=== PATIENT | female | born 1985 | race African-American/Black ===

== ENCOUNTER 2016-12-15 16:38 | Emergency (ER) | payer OTHER ==
[~2016-12-15] VITALS: Ht 167.6 cm; Wt 125.3 kg
[~2016-12-15 16:38] MED LIST: IBUP-1459 PO
[2016-12-15 16:42] VITALS: TEMP 36.7; Ht 167.6 cm; Wt 125.3 kg
[2016-12-15] MEDS ORDERED: KETOROLAC TROMETHAMINE 30 MG/ML VIAL IV STA (17:48)
[2016-12-15] MEDS ORDERED: MECLIZINE HCL 25 MG TAB PO STA (17:48)
[2016-12-15] MEDS ORDERED: SODIUM CHLORIDE 0.9% 1000ML 1,000 ML IV STA (17:48)
[2016-12-15 18:02] LABS: BASO % 0.5 %; BASO ABS # 0.03 K/uL (0-0.2); COMPLETE YES; EOS % 3.4 %; HEMATOCRIT 38.1 % (37-47); IG% 0.2 %; LYMPH % 36.6 %; LYMPH ABS # 2.23 K/uL (1.2-3.4); MEAN CELL VOLUME 85.4 fL (80-100); MEAN CORPUSCULAR HEMOGLOBIN 27.8 pg (25-34); MEAN CORPUSCULAR HGB CONC 32.5 g/dl (32-36); MEAN PLATELET VOLUME 8.6 fL (7.4-10.4); MONO % 6.6 %; NEUT % 52.7 %; PLATELET COUNT 362 K/uL (130-400); RED BLOOD COUNT 4.46 M/uL (4.2-5.4); WHITE BLOOD COUNT 6.09 K/uL (4.8-10.8)
[2016-12-15 18:11] LABS: URINE APPEARANCE CLOUDY (CLEAR); URINE BILIRUBIN NEG (NEG); URINE COLOR YELLOW; URINE EPITHELIAL CELL AUTO >30 /lpf (0-5); URINE NITRITE NEG (NEG); URINE SPECIFIC GRAVITY 1.026 (1.000-1.030); UROBILINOGEN NEG (NEG); ZZUR CULT IF INDIC CLEAN CATCH YES
[2016-12-15 18:13] LABS: MANUAL MICROSCOPIC REQUIRED? NO; REVIEW REQ? YES
[2016-12-15 18:22] LABS: ALT/SGPT 18 U/L (12-78); AST/SGOT 11 U/L (15-37); BLOOD UREA NITROGEN 8 mg/dl (7-18); BUN/CREATININE RATIO 10.3 (10-20); CALCIUM 8.4 mg/dl (8.5-10.1); CARBON DIOXIDE 27 mmol/L (21-32); CHLORIDE 105 mmol/L (98-107); CREATININE 0.75 mg/dl (0.60-1.20); GLUCOSE 83 mg/dl (70-99); POTASSIUM 3.7 mmol/L (3.5-5.1); SODIUM 140 mmol/L (136-145)
[2016-12-15 18:27] LABS: ALKALINE PHOSPHATASE 92 U/L (45-117)
--- NOTE | 2016-12-15 19:07 | DIAGNOSTIC IMAGING REPORT ---
HEAD CT NONCONTRAST CT DOSE: 773.57 mGy.cm HISTORY: Headache. TECHNIQUE: Multiaxial CT images of the head were performed without the use of intravenous contrast. Automated exposure control was utilized for this study. Comparison: Head CT 02/08/2016. Findings: The paranasal sinuses and mastoid air cells are clear. The calvarium and skull base are intact. The ventricles and sulci are within normal limits. There is no mass, hematoma, midline shift, or acute infarct. Impression: No acute intracranial abnormality. Electronically signed by: Dalton Cruz M.D. 12/15/2016 7:06 PM Dictated Date/Time: 12/15/2016 7:04 PM
--- NOTE | 2016-12-15 21:45 | DIAGNOSTIC IMAGING REPORT ---
PELVIC ULTRASOUND CLINICAL HISTORY: + Beta hCG w/ lower abdominal pain COMPARISON STUDY: None. Images. FINDINGS: Transabdominal scanning of the pelvis was performed. The patient deferred transvaginal scanning. The uterus measures 10.8 x 4.5 x 6.7 cm in thickness. No uterine masses. Endometrial stripe is thickened up to 1.9 cm. No pelvic free fluid. No adnexal masses. The ovaries are normal in size. There is a 1.2 cm slightly complex cyst within the right ovary. IMPRESSION: Suboptimal evaluation of the pelvis since the patient deferred transvaginal scanning. The endometrial stripe is thickened measuring up to 1.9 cm. No intrauterine gestational sac or fetus is identified at this time. Therefore, this could be due to an early nonvisualized intrauterine gestation, nonvisualized ectopic , or recent spontaneous in the setting of a positive test. No definite adnexal masses. Considered follow-up beta-hCG and pelvic ultrasound for further evaluation. Electronically signed by: Dalton Cruz M.D. 12/15/2016 9:43 PM Dictated Date/Time: 12/15/2016 9:39 PM
[2016-12-15] MEDS ORDERED: CEPHALEXIN MONOHYDRATE 250 MG CAP PO ONE (22:15)
[2016-12-15] MEDS ORDERED: CEPH500C PO (22:16)
[2016-12-15 22:50] VITALS: BP 99/70; PULSE 84; O2SAT 100
--- NOTE | 2016-12-15 23:09 | EMERGENCY ROOM VISIT NOTE ---
History Report prepared by Haleigh: Jagdeep Judge Under the Supervision of: Fredy LozanoO. First contact with patient: 17:28 Chief Complaint: ILLNESS Stated Complaint: BLOOD IN STOOL.HEADACHE,STOMACH/CHEST PAINS History of Present Illness The patient is a 31 year old female who presents to the Emergency Room with complaints of constant chest pain beginning three days ago. She currently rates her discomfort an 8/10 in severity. The patient reports that she is overall not feeling well. She reports that she has a constant headache that gradually started three days ago as well. The patient states that she feels dizzy, had blood in her stool four times, and had a memory lapse. She reports that her bowel movement this morning contained blood, and the last prior time was 4 days ago. The patient denies shortness of breath, arm pain, jaw pain, coughing up blood, nausea, vomiting, diarrhea, melena, tripping, and any recent falls. She also denies any history of smoking, DM, hypertension, hypercholesterolemia, heart disease, and blood clots. She notes that she traveled to [place] one month ago. The patient states that her last menstrual period was over a month ago. Source of History: patient Onset: three days ago Position: chest Symptom Intensity: 8/10 Timing: constant Associated Symptoms: + headache, No SOB, No nausea, No vomiting, No melena, No diarrhea Note: Associated symptoms: dizziness, had blood in her stool, and a memory lapse The patient denies arm pain, jaw pain, coughing up blood, tripping, and any recent falls. Review of Systems See HPI for pertinent positives & negatives. A total of 10 systems reviewed and were otherwise negative. Past Medical & Surgical Medical Problems: (1) Asthma (2) Chest pain (3) Chest pain (4) Gestation period, 26 weeks (5) (6) Shortness of breath Family History Diabetes mellitus Social History Smoking Status: Never Smoker Alcohol Use: none Marital Status: Housing Status: lives with family Occupation Status: employed Current/Historical Medications Scheduled Cephalexin Monohydrate (Keflex), 1 CAP PO TID Allergies Coded Allergies: Penicillins (Verified Allergy, Severe, HIVES, 12/15/16) Shellfish Allergy (Verified Allergy, Severe, ANAPHYLAXIS, 12/15/16) ALL SEAFOOD Physical Exam Vital Signs Date Time Temp Pulse Resp B/P (MAP) Pulse Ox O2 Delivery O2 Flow Rate FiO2 12/15/16 22:50 84 16 99/70 100 12/15/16 21:26 84 20 90/62 99 12/15/16 20:30 84 26 124/74 100 12/15/16 18:43 85 23 100 12/15/16 18:38 94 20 100 12/15/16 18:08 90 23 100 12/15/16 17:52 127/79 12/15/16 17:51 89 12/15/16 17:21 123/65 12/15/16 16:42 36.7 94 18 134/86 100 Room Air Physical Exam GENERAL: sitting up in bed, obese, no distress, non-toxic EYE EXAM: normal conjunctiva OROPHARYNX: no exudate, no erythema, lips, buccal mucosa, and tongue normal and mucous membranes are moist NECK: supple, no nuchal rigidity, no adenopathy, non-tender LUNGS: Clear to auscultation. Normal chest wall mechanics HEART: no murmurs, S1 normal and S2 normal ABDOMEN: abdomen soft, non-tender, normo-active bowel sounds, no masses, no rebound or guarding. BACK: Back is symmetrical on inspection and there is no deformity, no midline tenderness, no CVA tenderness. 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 LOWER EXTREMITIES: No pitting edema. NEURO EXAM: Normal sensorium, cranial nerves II-XII intact, normal speech, no weakness of arms, no weakness of legs. Medical Decision & Procedures ER Provider Diagnostic Interpretation: Radiology results as stated below per my review and the radiologist's interpretation: HEAD CT NONCONTRAST CT DOSE: 773.57 mGy.cm HISTORY: Headache. TECHNIQUE: Multiaxial CT images of the head were performed without the use of intravenous contrast. Automated exposure control was utilized for this study. Comparison: Head CT 02/08/2016. Findings: The paranasal sinuses and mastoid air cells are clear. The calvarium and skull base are intact. The ventricles and sulci are within normal limits. There is no mass, hematoma, midline shift, or acute infarct. Impression: No acute intracranial abnormality. Electronically signed by: Dalton Cruz M.D. 12/15/2016 7:06 PM Dictated Date/Time: 12/15/2016 7:04 PM PELVIC ULTRASOUND CLINICAL HISTORY: + Beta hCG w/ lower abdominal pain COMPARISON STUDY: None. Images. FINDINGS: Transabdominal scanning of the pelvis was performed. The patient deferred transvaginal scanning. The uterus measures 10.8 x 4.5 x 6.7 cm in thickness. No uterine masses. Endometrial stripe is thickened up to 1.9 cm. No pelvic free fluid. No adnexal masses. The ovaries are normal in size. There is a 1.2 cm slightly complex cyst within the right ovary. IMPRESSION: Suboptimal evaluation of the pelvis since the patient deferred transvaginal scanning. The endometrial stripe is thickened measuring up to 1.9 cm. No intrauterine gestational sac or fetus is identified at this time. Therefore, this could be due to an early nonvisualized intrauterine gestation, nonvisualized ectopic , or recent spontaneous in the setting of a positive test. No definite adnexal masses. Considered follow-up beta-hCG and pelvic ultrasound for further evaluation. Electronically signed by: Dalton Cruz M.D. 12/15/2016 9:43 PM Dictated Date/Time: 12/15/2016 9:39 PM Laboratory Results 12/15/16 17:40 Red Blood Count 4.46, Mean Corpuscular Volume 85.4, Mean Corpuscular Hemoglobin 27.8, Mean Corpuscular Hemoglobin Concent 32.5, Mean Platelet Volume 8.6, Neutrophils (%) (Auto) 52.7, Lymphocytes (%) (Auto) 36.6, Monocytes (%) (Auto) 6.6, Eosinophils (%) (Auto) 3.4, Basophils (%) (Auto) 0.5, Neutrophils # (Auto) 3.21, Lymphocytes # (Auto) 2.23, Monocytes # (Auto) 0.40, Eosinophils # (Auto) 0.21, Basophils # (Auto) 0.03 12/15/16 17:40 Test 12/15/16 17:40 12/15/16 17:50 White Blood Count 6.09 K/uL (4.8-10.8) Red Blood Count 4.46 M/uL (4.2-5.4) Hemoglobin 12.4 g/dL (12.0-16.0) Hematocrit 38.1 % (37-47) Mean Corpuscular Volume 85.4 fL (80-100) Mean Corpuscular Hemoglobin 27.8 pg (25-34) Mean Corpuscular Hemoglobin Concent 32.5 g/dl (32-36) Platelet Count 362 K/uL (130-400) Mean Platelet Volume 8.6 fL (7.4-10.4) Neutrophils (%) (Auto) 52.7 % Lymphocytes (%) (Auto) 36.6 % Monocytes (%) (Auto) 6.6 % Eosinophils (%) (Auto) 3.4 % Basophils (%) (Auto) 0.5 % Neutrophils # (Auto) 3.21 K/uL (1.4-6.5) Lymphocytes # (Auto) 2.23 K/uL (1.2-3.4) Monocytes # (Auto) 0.40 K/uL (0.11-0.59) Eosinophils # (Auto) 0.21 K/uL (0-0.5) Basophils # (Auto) 0.03 K/uL (0-0.2) RDW Standard Deviation 41.9 fL (36.4-46.3) RDW Coefficient of Variation 13.6 % (11.5-14.5) Immature Granulocyte % (Auto) 0.2 % Immature Granulocyte # (Auto) 0.01 K/uL (0.00-0.02) D-Dimer 330 ug/L FEU (0-500) Anion Gap 8.0 mmol/L (3-11) Est Creatinine Clear Calc Drug Dose 148.3 ml/min Estimated GFR () 124.0 Estimated GFR (Non- 107.0 BUN/Creatinine Ratio 10.3 (10-20) Calcium Level 8.4 mg/dl (8.5-10.1) Total Bilirubin 0.5 mg/dl (0.2-1) Direct Bilirubin < 0.1 mg/dl (0-0.2) Aspartate Amino Transf (AST/SGOT) 11 U/L (15-37) Alanine Aminotransferase (ALT/SGPT) 18 U/L (12-78) Alkaline Phosphatase 92 U/L (45-117) Troponin I < 0.015 ng/ml (0-0.045) Total Protein 7.9 gm/dl (6.4-8.2) Albumin 3.4 gm/dl (3.4-5.0) Lipase 95 U/L (73-393) Human Chorionic Gonadotropin, Quant 418 mIU/mL Urine Color YELLOW Urine Appearance CLOUDY (CLEAR) Urine pH 8.0 (4.5-7.5) Urine Specific [place] 1.026 (1.000-1.030) Urine Protein NEG (NEG) Urine Glucose (UA) NEG (NEG) Urine Ketones NEG (NEG) Urine Occult Blood NEG (NEG) Urine Nitrite NEG (NEG) Urine Bilirubin NEG (NEG) Urine Urobilinogen NEG (NEG) Urine Leukocyte Esterase MODERATE (NEG) Urine WBC (Auto) 5-10 /hpf (0-5) Urine RBC (Auto) 0-4 /hpf (0-4) Urine Hyaline Casts (Auto) 1-5 /lpf (0-5) Urine Epithelial Cells (Auto) >30 /lpf (0-5) Urine Bacteria (Auto) 1+ (NEG) Urine Yeast (Auto) PRESENT (NONE PRSENT) Urine Test POS (NEG) Laboratory results per my review. Medications Administered Medications (Trade) Dose Ordered Sig/Jenn Route Start Time Stop Time Status Last Admin Dose Admin Sodium Chloride 1,000 ml @ 999 mls/hr Q1H1M STAT IV 12/15/16 17:48 12/15/16 18:51 DC 12/15/16 18:00 999 MLS/HR Meclizine HCl (Antivert Tab) 25 mg NOW STAT PO 12/15/16 17:48 12/15/16 17:50 DC 12/15/16 18:05 25 MG Ketorolac Tromethamine (Toradol Inj) 30 mg NOW STAT IV 12/15/16 17:48 12/15/16 17:50 DC 12/15/16 18:04 30 MG Cephalexin Monohydrate (Keflex Cap) 500 mg NOW ONCE PO 12/15/16 22:15 12/15/16 22:16 DC 12/15/16 22:50 500 MG ECG Indication: chest pain Rate (beats per minute): 85 Rhythm: sinus rhythm Findings: T-wave inversion (lead III), no ectopy, other (normal axis) Comparison ECG Date: 02/07/16 Change: no significant change ED Course ED COURSE: Vital signs were reviewed and showed hypertension The patients medical record was reviewed The above diagnostic studies were performed and reviewed. ED treatments and interventions as stated above. 1737: The patient was evaluated in room B06. A complete history and physical examination was performed. 1747: Ordered Toradol Inj 30mg IV, Antivert Tab 25mg PO, Sodium Chloride 1000 ml @ 999 mls/hr IV 1919: I reevaluated the patient, and she refuses a chest x-ray. 2007: I reevaluated the patient, and she is resting. I discussed her current exam finding with her. 2214: Ordered Keflex Cap 500mg PO 2215: Upon reevaluation, the patient is resting and in no distress. I discussed my findings with the patient and she understands and agrees with the treatment plan. Based on the patients age, coexisting illnesses, exam and lab findings the decision to treat as an outpatient was made. The patient remained stable while under my care. The patient appeared well at the time of discharge. Medical Decision Differential Diagnosis includes but is not limited to dehydration, stroke, anemia, hypoglycemia, hyponatremia, hypernatremia, urinary tract infection, pneumonia, bronchitis, sepsis, gastroenteritis, additional abdominal pathology, metabolic abnormalities and infections. Medication Reconciliation: I attest that I have personally reviewed the patient' s current medication list. Blood pressure screening: Patient was found to have an elevated blood pressure and was referred to their primary doctor for recheck and further treatment. Patient is a 31-year-old female who presents the ER for chest pain which has been present for the past 3 days associated with weakness, intermittent headache and intermittent blood in the stool. Pt was hem neg. She does admit to urinary frequency as well. Abdominal exam is benign. Labs show no significant leukocytosis or anemia. BMP along with LFTs, bilirubin and lipase was normal. Troponin was negative with chest pain that has been present for greater than 3 days. D-dimer was negative. She declined a chest x-ray due to the . HCG was 420. UA shows bacteria and yeast. She was given a dose of Keflex with her urinary frequency. Patient was discharged follow-up with OB in 2 days to have a repeat beta hCG. I did explain the risk of a possible ectopic although unlikely. I do believe that her symptoms are most likely secondary to the early in combination with a UTI. RX for diflucan was called into pharmacy. She has no cardiac risk factors. Low risk for PE and with a negative d-dimer this was not pursued any further. EKG as stated above was negative. Discussed with Pt concerning signs and symptoms to watch out for. Pt was instructed to follow up with their PCP and discussed with the patient their option to return to the ED at anytime for persistent or worsening symptoms. The appropriate anticipatory guidance and out-patient management, including indications for return to the emergency department, were explained at length to the patient and understood. Impression Primary Impression: Headache Additional Impression: UTI (urinary tract infection) Scribe Attestation The scribe's documentation has been prepared under my direction and personally reviewed by me in its entirety. I confirm that the note above accurately reflects all work, treatment, procedures, and medical decision making performed by me. Departure Information Dispostion Home / Self-Care Prescriptions Cephalexin Monohydrate (Keflex) 500 Mg Cap 1 CAP PO TID for 10 Days, #30 CAP Prov: Aidan Hill, DO 12/15/16 Referrals No Doctor, Assigned (PCP) Forms HOME CARE DOCUMENTATION FORM, IMPORTANT VISIT INFORMATION, WORK / SCHOOL INSTRUCTIONS Patient Instructions Headache Pain, My [facility] [address] Additional Instructions Please follow up with your primary care doctor with in the next 24 hours. Any worsening of your symptoms, please return to the ED immediately. This includes vaginal bleeding, abdominal pain, weakness or numbness, change in vision, or any other concerning signs or symptoms from your standpoint. Please follow up with OB in the next 2 days for repeat beta hCG. Please take prenatals. Problem Qualifiers Primary Impression: Headache Headache type: unspecified Headache chronicity pattern: acute headache Intractability: not intractable Qualified Codes: R51 - Headache Additional Impression: UTI (urinary tract infection) Urinary tract infection type: site unspecified Hematuria presence: without hematuria Qualified Codes: N39.0 - Urinary tract infection, site not specified
== END 2016-12-15 23:07 | disposition home or self-care (01) ==
LOC: C.EDB 16:40
DX: R51 Headache (principal); N39.0 Urinary tract infection, site not specified; J45.909 Unspecified asthma, uncomplicated; Z83.3 Family history of diabetes mellitus

== ENCOUNTER → 2016-12-22 | Outpatient (CLI) | payer OTHER ==
[~2016-12-22] MED LIST changes: +CEPH500C PO; -IBUP-1459 PO; +ONDA4TAB46 PO; +PROM25SU28 PR; +RANI150C4 PO
== END | disposition home or self-care (01) ==
LOC: C.LAB1850 10:48
PROVIDERS: ATTEND Obstetrics & Gynecology
DX: O20.0 Threatened abortion (principal); Z3A.00 Weeks of gestation of pregnancy not specified

== ENCOUNTER 2017-01-01 15:05 | Emergency (ER) | payer OTHER ==
[~2017-01-01] VITALS: Ht 167.6 cm; Wt 123.1 kg
[2017-01-01 15:16] VITALS: TEMP 36.7; Ht 167.6 cm; Wt 123.1 kg
[2017-01-01] MEDS ORDERED: SODIUM CHLORIDE 0.9% 1000ML 1,000 ML IV STA (16:56)
[2017-01-01] MEDS ORDERED: ACETAMINOPHEN 325 MG TAB PO STA (16:56)
[2017-01-01 17:12] LABS: BASO % 0.2 %; BASO ABS # 0.02 K/uL (0-0.2); COMPLETE YES; EOS % 2.9 %; HEMATOCRIT 38.3 % (37-47); IG% 0.2 %; LYMPH % 27.8 %; LYMPH ABS # 2.31 K/uL (1.2-3.4); MEAN CELL VOLUME 84.9 fL (80-100); MEAN CORPUSCULAR HEMOGLOBIN 28.6 pg (25-34); MEAN CORPUSCULAR HGB CONC 33.7 g/dl (32-36); MEAN PLATELET VOLUME 9.1 fL (7.4-10.4); MONO % 8.3 %; NEUT % 60.6 %; PLATELET COUNT 333 K/uL (130-400); RED BLOOD COUNT 4.51 M/uL (4.2-5.4); WHITE BLOOD COUNT 8.31 K/uL (4.8-10.8)
[2017-01-01 17:18] LABS: URINE APPEARANCE CLEAR (CLEAR); URINE BILIRUBIN NEG (NEG); URINE COLOR YELLOW; URINE EPITHELIAL CELL AUTO >30 /lpf (0-5); URINE NITRITE NEG (NEG); URINE PH 7.5 (4.5-7.5); URINE SPECIFIC GRAVITY 1.023 (1.000-1.030); UROBILINOGEN NEG (NEG); ZZUR CULT IF INDIC CLEAN CATCH YES
[2017-01-01 17:26] LABS: MANUAL MICROSCOPIC REQUIRED? NO; REVIEW REQ? NO
[2017-01-01 17:38] LABS: BUN/CREATININE RATIO 7.3 (10-20); CALCIUM 8.8 mg/dl (8.5-10.1); CREATININE 0.74 mg/dl (0.60-1.20); MAGNESIUM 1.8 mg/dl (1.8-2.4); POTASSIUM 3.7 mmol/L (3.5-5.1)
--- NOTE | 2017-01-01 18:58 | EMERGENCY ROOM VISIT NOTE ---
History Report prepared by Pageibflorencio: Chin Pardo Under the Supervision of: Dr. Maren Roa M.D. First contact with patient: 16:28 Chief Complaint: GI ASSESSMENT Stated Complaint: BACK, LOWER BELLY PAIN, BLOOD IN STOOL, NAUSEA Nursing Triage Summary: abdominal pain. blood in stool for the past 3 days. taking antibiotics for a uti/yeast infection. dizziness and back pain History of Present Illness The patient is a 31 year old female who presents to the Emergency Room with complaints of constant abdominal pain for the past three days. The patient reports that her last normal menstrual period was in the beginning of October. The patient states that she reported to the ED for a UTI three weeks ago when she found out she was . She reports that she has been two times before and both were premature, with the first one born two months early and the second a month early. She reports that during her ED visit, she was given Keflex for her UTI and has taken it three times a day,1500 mg total. The patient states that she is currently off of the antibiotics. She states that she had been experiencing diarrhea from the antibiotics, but admits this has resolved. The patient states that three days ago she started to experience abdominal pain which is worse with pressure, lower back pain, muscle spasms, nausea, vomiting, polyuria, and blood in her stool. The patient states that she went to her [employer] [facility] earlier today when they were concerned about her symptoms and advised her to report to the ED. The patient denies urinary symptoms, diabetes, and swelling in her feet. Source of History: patient Onset: three days ago Position: abdomen Timing: constant Modifying Factors (Worsening): other (pressure) Associated Symptoms: + nausea, + vomiting, + diarrhea, No urinary symptoms Review of Systems See HPI for pertinent positives & negatives. A total of 10 systems reviewed and were otherwise negative. Past Medical & Surgical Medical Problems: (1) Asthma (2) Chest pain (3) Chest pain (4) Gestation period, 26 weeks (5) (6) Shortness of breath Family History Diabetes mellitus Social History Smoking Status: Never Smoker Alcohol Use: none Marital Status: Housing Status: lives with family Occupation Status: employed Current/Historical Medications No Active Prescriptions or Reported Meds Allergies Coded Allergies: Penicillins (Verified Allergy, Severe, HIVES, 12/15/16) Shellfish Allergy (Verified Allergy, Severe, ANAPHYLAXIS, 12/15/16) ALL SEAFOOD Physical Exam Vital Signs Date Time Temp Pulse Resp B/P (MAP) Pulse Ox O2 Delivery O2 Flow Rate FiO2 01/01/17 20:28 71 17 116/87 99 01/01/17 19:17 75 01/01/17 19:15 71 113/64 98 Room Air 01/01/17 17:25 73 16 134/72 100 Room Air 01/01/17 15:16 36.7 89 18 125/66 99 Room Air Physical Exam Vital signs reviewed. General: Well-appearing 31 year old female, in no significant distress. HEENT: No scleral icterus, PERRLA, neck supple. Atraumatic. Cardiovascular: Regular rate and rhythm, no extra sounds. Pulmonary: Clear to auscultation bilaterally, normal work of breathing. Abdomen: Soft, Diffuse abdominal tenderness, no rebound or guarding, nondistended, positive bowel sounds. Back: Positive CVA tenderness bilaterally Musculoskeletal: Atraumatic, no peripheral edema. Neurologic: Patient awake alert and oriented x 3, full strength in all 4 extremities. Cranial nerves 2 through 12 grossly intact. Skin: Warm, dry, no rash Medical Decision & Procedures ER Provider Diagnostic Interpretation: Radiology results as stated below per my review and radiologist interpretation: RENAL ULTRASOUND CLINICAL HISTORY: Bilateral costovertebral angle tenderness. . COMPARISON STUDY: None. TECHNIQUE: Sonography of the kidneys and the urinary bladder was performed. FINDINGS: The right kidney measures 10.2 cm in maximal dimension and the left measures 11.9 cm. There is no hydronephrosis. Renal echogenicity, size and cortical thickness are normal. Neither ureteral jet was identified. No calculi are identified by sonography. IMPRESSION: Normal renal ultrasound. No hydronephrosis. Electronically signed by: Shane Veloz M.D. 01/01/2017 7:09 PM Dictated Date/Time: 01/01/2017 7:08 PM ULTRASOUND CLINICAL HISTORY: . Abdominal pain and cramping. COMPARISON STUDY: ultrasound December 15, 2016. TECHNIQUE: Transabdominal and transvaginal sonography of the pelvis was performed. FINDINGS: An intrauterine gestational sac is noted. This contains a yolk sac that measures 4 mm in size. A pole is noted with a crown-rump length of 7.6 mm. Estimated gestational age on this exam is 6 weeks and 5 days. heart rate is 104 bpm. This is within normal limits given this gestational age. Note is made of a 3.5 x 1.7 x 2.1 cm subchorionic hypoechoic focus that likely reflect a subchorionic hematoma. No additional abnormalities are identified. The ovaries are unremarkable. There is no free fluid. IMPRESSION: 1. Intrauterine gestational sac containing a pole with estimated gestational age of 6 weeks and 5 days. Normal heart rate of 104 bpm. 2. 3.5 x 1.7 x 2.1 cm suspected subchorionic hematoma. Electronically signed by: Shane Veloz M.D. 01/01/2017 7:18 PM Dictated Date/Time: 01/01/2017 7:14 PM Laboratory Results 01/01/17 16:50 Red Blood Count 4.51, Mean Corpuscular Volume 84.9, Mean Corpuscular Hemoglobin 28.6, Mean Corpuscular Hemoglobin Concent 33.7, Mean Platelet Volume 9.1, Neutrophils (%) (Auto) 60.6, Lymphocytes (%) (Auto) 27.8, Monocytes (%) (Auto) 8.3, Eosinophils (%) (Auto) 2.9, Basophils (%) (Auto) 0.2, Neutrophils # (Auto) 5.03, Lymphocytes # (Auto) 2.31, Monocytes # (Auto) 0.69, Eosinophils # (Auto) 0.24, Basophils # (Auto) 0.02 01/01/17 16:50 Test 01/01/17 16:50 White Blood Count 8.31 K/uL (4.8-10.8) Red Blood Count 4.51 M/uL (4.2-5.4) Hemoglobin 12.9 g/dL (12.0-16.0) Hematocrit 38.3 % (37-47) Mean Corpuscular Volume 84.9 fL (80-100) Mean Corpuscular Hemoglobin 28.6 pg (25-34) Mean Corpuscular Hemoglobin Concent 33.7 g/dl (32-36) Platelet Count 333 K/uL (130-400) Mean Platelet Volume 9.1 fL (7.4-10.4) Neutrophils (%) (Auto) 60.6 % Lymphocytes (%) (Auto) 27.8 % Monocytes (%) (Auto) 8.3 % Eosinophils (%) (Auto) 2.9 % Basophils (%) (Auto) 0.2 % Neutrophils # (Auto) 5.03 K/uL (1.4-6.5) Lymphocytes # (Auto) 2.31 K/uL (1.2-3.4) Monocytes # (Auto) 0.69 K/uL (0.11-0.59) Eosinophils # (Auto) 0.24 K/uL (0-0.5) Basophils # (Auto) 0.02 K/uL (0-0.2) RDW Standard Deviation 41.1 fL (36.4-46.3) RDW Coefficient of Variation 13.4 % (11.5-14.5) Immature Granulocyte % (Auto) 0.2 % Immature Granulocyte # (Auto) 0.02 K/uL (0.00-0.02) Urine Color YELLOW Urine Appearance CLEAR (CLEAR) Urine pH 7.5 (4.5-7.5) Urine Specific [place] 1.023 (1.000-1.030) Urine Protein NEG (NEG) Urine Glucose (UA) NEG (NEG) Urine Ketones NEG (NEG) Urine Occult Blood NEG (NEG) Urine Nitrite NEG (NEG) Urine Bilirubin NEG (NEG) Urine Urobilinogen NEG (NEG) Urine Leukocyte Esterase SMALL (NEG) Urine WBC (Auto) 1-5 /hpf (0-5) Urine RBC (Auto) 0-4 /hpf (0-4) Urine Hyaline Casts (Auto) 1-5 /lpf (0-5) Urine Epithelial Cells (Auto) >30 /lpf (0-5) Urine Bacteria (Auto) 1+ (NEG) Anion Gap 7.0 mmol/L (3-11) Est Creatinine Clear Calc Drug Dose 148.8 ml/min Estimated GFR () 126.0 Estimated GFR (Non- 108.7 BUN/Creatinine Ratio 7.3 (10-20) Calcium Level 8.8 mg/dl (8.5-10.1) Magnesium Level 1.8 mg/dl (1.8-2.4) Total Bilirubin 0.5 mg/dl (0.2-1) Direct Bilirubin 0.1 mg/dl (0-0.2) Aspartate Amino Transf (AST/SGOT) 14 U/L (15-37) Alanine Aminotransferase (ALT/SGPT) 20 U/L (12-78) Alkaline Phosphatase 87 U/L (45-117) Total Protein 7.9 gm/dl (6.4-8.2) Albumin 3.3 gm/dl (3.4-5.0) Laboratory results per my review. Medications Administered Medications (Trade) Dose Ordered Sig/Jenn Route Start Time Stop Time Status Last Admin Dose Admin Sodium Chloride 1,000 ml @ 999 mls/hr Q1H1M STAT IV 01/01/17 16:56 01/01/17 17:56 DC 01/01/17 17:27 999 MLS/HR Acetaminophen (Tylenol Tab) 650 mg NOW STAT PO 01/01/17 16:56 01/01/17 16:58 DC 01/01/17 17:25 650 MG ED Course 1654: Past medical records reviewed. The patient was evaluated in room B12B. A complete history and physical examination was performed. 1655: Tylenol Tab 650 mg PO, Sodium Chloride 1000 ml @ 999 ms/hr IV. 2011: Upon reevaluation, the patient appeared to have improvement of her symptoms. I discussed findings with the patient. She verbalized agreement of the treatment plan. She was discharged home. Medical Decision The differential diagnosis includes but is not limited to: etiologies such as appendicitis, diverticulitis, PUD, biliary pathology, UTI, pancreatitis, obstruction, mesenteric ischemia, aortic pathology, infections, inflammatory bowel disease, renal colic, threatened , ectopic , ovarian cyst, as well as others were entertained. Medication Reconciliation: I attest that I have personally reviewed the patient' s current medication list. Blood Pressure Screening: Patient was found to have normal blood pressure on screening and does not require follow-up. This pt was evaluated and appeared to be in no distress. PE reveals lumbar muscular pain. US fetus reveals a 6 week viable IUP, subchorionic hemorrhage. Pt was hydrated with NSS. She was given tylenol for pain. UA is negative. Pt was informed of the findings. She will f/u with OBGYN this week and return to the ED for worsening of symptoms or any medical concerns. Impression Primary Impression: First trimester Additional Impression: Subchorionic hematoma Scribe Attestation The scribe's documentation has been prepared under my direction and personally reviewed by me in its entirety. I confirm that the note above accurately reflects all work, treatment, procedures, and medical decision making performed by me. Departure Information Dispostion Home / Self-Care Prescriptions No Active Prescriptions or Reported Meds Referrals No Doctor, Assigned (PCP) Forms HOME CARE DOCUMENTATION FORM, IMPORTANT VISIT INFORMATION Patient Instructions My [facility] [employer] Additional Instructions Diagnosis: First trimester Warm compresses to the low back and gentle stretching. Tylenol 650 mg every 6 hours as needed for pain. Follow-up with your [employer] [facility] for reevaluation within the next several weeks. There is an apparent subchorionic hematoma on ultrasound. Return to the ER for worsening of symptoms or any medical concerns. Problem Qualifiers
--- NOTE | 2017-01-01 19:10 | DIAGNOSTIC IMAGING REPORT ---
RENAL ULTRASOUND CLINICAL HISTORY: Bilateral costovertebral angle tenderness. . COMPARISON STUDY: None. TECHNIQUE: Sonography of the kidneys and the urinary bladder was performed. FINDINGS: The right kidney measures 10.2 cm in maximal dimension and the left measures 11.9 cm. There is no hydronephrosis. Renal echogenicity, size and cortical thickness are normal. Neither ureteral jet was identified. No calculi are identified by sonography. IMPRESSION: Normal renal ultrasound. No hydronephrosis. Electronically signed by: Shane Veloz M.D. 01/01/2017 7:09 PM Dictated Date/Time: 01/01/2017 7:08 PM
--- NOTE | 2017-01-01 19:19 | DIAGNOSTIC IMAGING REPORT ---
ULTRASOUND CLINICAL HISTORY: . Abdominal pain and cramping. COMPARISON STUDY: ultrasound December 15, 2016. TECHNIQUE: Transabdominal and transvaginal sonography of the pelvis was performed. FINDINGS: An intrauterine gestational sac is noted. This contains a yolk sac that measures 4 mm in size. A pole is noted with a crown-rump length of 7.6 mm. Estimated gestational age on this exam is 6 weeks and 5 days. heart rate is 104 bpm. This is within normal limits given this gestational age. Note is made of a 3.5 x 1.7 x 2.1 cm subchorionic hypoechoic focus that likely reflect a subchorionic hematoma. No additional abnormalities are identified. The ovaries are unremarkable. There is no free fluid. IMPRESSION: 1. Intrauterine gestational sac containing a pole with estimated gestational age of 6 weeks and 5 days. Normal heart rate of 104 bpm. 2. 3.5 x 1.7 x 2.1 cm suspected subchorionic hematoma. Electronically signed by: Shane Veloz M.D. 01/01/2017 7:18 PM Dictated Date/Time: 01/01/2017 7:14 PM
[2017-01-01 20:28] VITALS: BP 116/87; PULSE 71; O2SAT 99
== END 2017-01-01 20:30 | disposition home or self-care (01) ==
LOC: C.EDB 15:06
DX: O20.8 Other hemorrhage in early pregnancy (principal); Z3A.01 Less than 8 weeks gestation of pregnancy

== ENCOUNTER → 2017-01-09 | Outpatient (CLI) | payer OTHER ==
[~2017-01-09] MED LIST changes: -CEPH500C PO
[2017-01-12 13:22] LABS: CHLAMYDIA TRACH RNA*** NOT DETECTED (NOT DETECTED); GC (NEIS GONORRHOEAE)RNA** NOT DETECTED (NOT DETECTED)
== END | disposition home or self-care (01) ==
LOC: C.LABSPEC 17:37
PROVIDERS: ATTEND Obstetrics & Gynecology
DX: O20.0 Threatened abortion (principal); Z3A.00 Weeks of gestation of pregnancy not specified

== ENCOUNTER 2017-02-24 15:07 | Emergency (ER) | payer OTHER ==
[~2017-02-24] VITALS: Ht 167.6 cm; Wt 126.5 kg
[2017-02-24 15:11] VITALS: Ht 167.6 cm; Wt 126.5 kg
[2017-02-24] MEDS ORDERED: RANITIDINE HCL 150 MG TAB PO STA (15:26)
--- NOTE | 2017-02-24 15:39 | EMERGENCY ROOM VISIT NOTE ---
History Report prepared by Haleigh: Devorah Harmon Under the Supervision of: Dr. Td Becerra M.D. First contact with patient: 15:19 Chief Complaint: ALLERGIC REACTION Stated Complaint: STUNG BY BEE,DIZZY, Nursing Triage Summary: triage note: pt reports she is 13 week preg. Pt reports she was stung to left upper arm by an insect. pt reports happend at 1430 today. pt reports hx of reaction "when i was little." pt reports "i feel okay right now.' pt denies any shortness of breath, difficulty swallowing. pt reports "i feel dizzy." History of Present Illness The patient is a 31 year old female who presents to the Emergency Room with complaints of two bee stings to the left arm that occurred prior to arrival. The patient states that she is currently 13 weeks . She reports a previous history of an allergic reaction to a bee sting when she was 11 years old. The patient states that she was at the [facility] and was stung twice in her left arm. She states that she began hyperventilating and was evaluated by the medics at the [facility]. The patient states that she is feeling better and denies any shortness of breath or other complaints. Source of History: patient Onset: prior to arrival Position: arm (left) Quality: other (two bee stings) Associated Symptoms: No SOB Review of Systems See HPI for pertinent positives & negatives. A total of 10 systems reviewed and were otherwise negative. Past Medical & Surgical Medical Problems: (1) Asthma (2) Chest pain (3) Chest pain (4) Gestation period, 26 weeks (5) (6) Shortness of breath Family History Diabetes mellitus Social History Smoking Status: Never Smoker Alcohol Use: none Marital Status: Housing Status: lives with family Occupation Status: employed Current/Historical Medications Scheduled PRN Ondansetron Hcl (Zofran), 4 MG PO Q4 PRN for Nausea Allergies Coded Allergies: Penicillins (Verified Allergy, Severe, HIVES, 02/24/17) Shellfish Allergy (Verified Allergy, Severe, ANAPHYLAXIS, 02/24/17) ALL SEAFOOD Physical Exam Vital Signs Date Time Temp Pulse Resp B/P (MAP) Pulse Ox O2 Delivery O2 Flow Rate FiO2 02/24/17 18:26 88 16 142/92 99 02/24/17 16:43 90 16 139/97 100 Room Air 02/24/17 15:11 Room Air 02/24/17 15:09 Room Air Physical Exam GENERAL: Patient is a healthy-appearing well-nourished female HEAD: Normocephalic atraumatic EYES: Ocular movements intact pupils equal and react to light OROPHARYNX mucous membranes are moist no exudates present no erythema or edema present NECK: Supple no nuchal rigidity CHEST: Good equal expansion LUNGS: Clear and equal to auscultation CARDIAC: Normal S1 and S2 ABDOMEN: Soft nontender no guarding BACK: No CVA tenderness EXTREMITIES: 2 bee stings to the left arm. No pain upon palpation normal muscle strength in all groups no clubbing cyanosis or edema NEURO: Patient is following commands and answering questions appropriately. Alert and oriented x3 Cranial Nerves 2-12 grossly intact Medical Decision & Procedures ER Provider Diagnostic Interpretation: US results as stated below per my review and radiologist interpretation: LIMITED (US) CLINICAL HISTORY: 31 years-old Female presenting with Assess for HR, stung by bee, mild abdominal pain. TECHNIQUE: Real-time grayscale and color and spectral Doppler ultrasound imaging of the pelvis was performed using a transabdominal probe. COMPARISON: 01/01/2017. FINDINGS: Uterus: Single live intrauterine . Female measures 1.5 cm, which corresponds with an estimated gestational age of 14 weeks 4 days and an estimated delivery date of 08/21/2017. heart rate 152 beats per minute. Anterior central implantation. Transverse positioning. Normal amniotic fluid volume. No perigestational fluid to suggest hemorrhage.Cervix long and closed. Right adnexa: Right ovary not visualized. Left adnexa: Left ovary not visualized. Other: No free fluid. IMPRESSION: Single live intrauterine with estimated gestational age 14 weeks 4 days and estimated date of delivery 08/21/2017. Electronically signed by: Sami Bishop M.D. 02/24/2017 5:33 PM Dictated Date/Time: 02/24/2017 5:30 PM Medications Administered Medications (Trade) Dose Ordered Sig/Jenn Route Start Time Stop Time Status Last Admin Dose Admin Diphenhydramine HCl (Benadryl Cap) 50 mg NOW STAT PO 02/24/17 15:26 02/24/17 15:28 DC 02/24/17 15:31 50 MG Ranitidine HCl (zANTac TAB) 150 mg NOW STAT PO 02/24/17 15:26 02/24/17 15:28 DC 02/24/17 15:31 150 MG ED Course 1519: Past medical records reviewed. The patient was evaluated in room B6. A complete history and physical examination was performed. 152: Ordered Zantac Tab 150 mg PO, Benadryl Cap 50 mg PO. 173: I reevaluated the patient and she is resting comfortably. 174: I reevaluated the patient and she is doing well. I discussed the exam findings with her and I discussed the treatment plan. She verbalized complete understanding and agreement. She is ready to go home. Medical Decision Differential diagnosis: Etiologies such as allergic reaction, anaphylaxis, urticaria, Hanley-Landry syndrome, toxic epidermal necrolysis, erythema multiforme, cellulitis, as well as others were entertained. This is a 31-year-old female who presents to the emergency department complaining of a bee sting. The patient is . Upon arrival to emergency department she is in no distress. She has no stridor or wheezing on examination. She is a local reaction at the bee sting site. There is no stinger present. I placed ice on the area. The patient was given Benadryl and Zantac here in the emergency department. She was sent for an ultrasound which showed no distress. I do feel that the patient is safe enough to be discharged home for follow-up with her primary care physician. Patient was in agreement with the treatment plan. Medication Reconcilliation Current Medication List: was personally reviewed by me Blood Pressure Screening Patient's blood pressure: Elevated blood pressure Blood pressure disposition: Referred to PCP Impression Primary Impression: Allergic reaction Scribe Attestation The scribe's documentation has been prepared under my direction and personally reviewed by me in its entirety. I confirm that the note above accurately reflects all work, treatment, procedures, and medical decision making performed by me. Departure Information Dispostion Home / Self-Care Referrals No Doctor, Assigned (PCP) Forms HOME CARE DOCUMENTATION FORM, IMPORTANT VISIT INFORMATION, School Instructions, Work Instructions Patient Instructions ED Allergic Reaction Local Other, My [facility] Additional Instructions Take 50 mg Benadryl every 6 hours as needed Follow up with OB You have been examined and treated today on an emergency basis only. This is not a substitute for, or an effort to provide, complete comprehensive medical care. It is impossible to recognize and treat all injuries or illnesses in a single emergency department visit. It is therefore important that you follow up closely with your PCP. Call as soon as possible for an appointment. Thank you for your time and consideration. I look forward to speaking with you again soon. Please don't hesitate to call us if you have any questions. Problem Qualifiers Primary Impression: Allergic reaction Encounter type: initial encounter Qualified Codes: T78.40XA - Allergy, unspecified, initial encounter
[2017-02-24] MEDS ORDERED: ONDA4TAB46 PO (16:01)
--- NOTE | 2017-02-24 17:34 | DIAGNOSTIC IMAGING REPORT ---
LIMITED (US) CLINICAL HISTORY: 31 years-old Female presenting with Assess for HR, stung by bee, mild abdominal pain. TECHNIQUE: Real-time grayscale and color and spectral Doppler ultrasound imaging of the pelvis was performed using a transabdominal probe. COMPARISON: 01/01/2017. FINDINGS: Uterus: Single live intrauterine . Female measures 1.5 cm, which corresponds with an estimated gestational age of 14 weeks 4 days and an estimated delivery date of 08/21/2017. heart rate 152 beats per minute. Anterior central implantation. Transverse positioning. Normal amniotic fluid volume. No perigestational fluid to suggest hemorrhage.Cervix long and closed. Right adnexa: Right ovary not visualized. Left adnexa: Left ovary not visualized. Other: No free fluid. IMPRESSION: Single live intrauterine with estimated gestational age 14 weeks 4 days and estimated date of delivery 08/21/2017. Electronically signed by: Sami Bishop M.D. 02/24/2017 5:33 PM Dictated Date/Time: 02/24/2017 5:30 PM
[2017-02-24 18:26] VITALS: BP 142/92; PULSE 88; O2SAT 99
== END 2017-02-24 18:26 | disposition home or self-care (01) ==
LOC: C.EDB 15:08
DX: S40.862A Insect bite (nonvenomous) of left upper arm, initial encounter (principal); T63.441A Toxic effect of venom of bees, accidental (unintentional), initial encounter; X58.XXXA Exposure to other specified factors, initial encounter; J45.909 Unspecified asthma, uncomplicated; Z33.1 Pregnant state, incidental; Z83.3 Family history of diabetes mellitus

== ENCOUNTER → 2017-02-28 | Day surgery (SDC) | payer OTHER ==
[~2017-02-28] VITALS: Ht 167.6 cm; Wt 122.0 kg
[~2017-02-28] MED LIST changes: +LACTATED RINGER'S 1000ML 1,000 ML IV ONE; +ONDANSETRON INJ 8 MG in DEXTROSE 5% 50ML 50 ML IV ONE; +PROMETHAZINE HCL INJ 25 MG in SODIUM CHLORIDE 0.9% 50ML 50 ML IV PRN; +PROMETHAZINE HCL INJ 25 MG/ML 1 ML VIAL IV PRN
[2017-02-28 15:45] VITALS: BP 137/78; PULSE 91; TEMP 37.3; O2SAT 98; Ht 167.6 cm; Wt 122.0 kg
[2017-02-28 17:03] VITALS: BP 116/66; PULSE 89; TEMP 37.2; O2SAT 98
[2017-02-28] MEDS: LACTATED RINGER'S 1000ML 1,000 ML IV SCH ×2 (17:03→19:06)
[2017-02-28 19:06] VITALS: BP 115/56; PULSE 91; TEMP 37.2; O2SAT 100
[2017-02-28 19:59] VITALS: BP 131/64; PULSE 95; TEMP 37.2; O2SAT 100
== END | disposition home or self-care (01) ==
LOC: C.MTU 15:30
PROVIDERS: ATTEND Obstetrics & Gynecology
DX: R11.0 Nausea (principal); R82.4 Acetonuria

== ENCOUNTER → 2017-03-09 | Outpatient (CLI) | payer OTHER ==
[~2017-03-09] MED LIST changes: -LACTATED RINGER'S 1000ML 1,000 ML IV ONE; -ONDANSETRON INJ 8 MG in DEXTROSE 5% 50ML 50 ML IV ONE; -PROMETHAZINE HCL INJ 25 MG in SODIUM CHLORIDE 0.9% 50ML 50 ML IV PRN; -PROMETHAZINE HCL INJ 25 MG/ML 1 ML VIAL IV PRN
[2017-03-15 14:26] LABS: AFP CONCENTRATION 25.2 NG/ML; AFP MULTIPLE OF MEDIAN 1.02; AFPTS GESTATIONAL AGE 16.4 WEEKS; AFPTS INSULIN DEP DIABETIC? NO; AFPTS MATERNAL WT 277 LBS; ALPHA-FETOPROTEIN RACE OTHER=O; ESTRIOL MULTIPLE OF MEDIAN 0.91; HISTORY OF NTD NO; INHIBIN A 176 PG/ML; INHIBIN A MOM 1.33; REPEAT SAMPLE? NO; hCG MULTIPLE OF MEDIAN 1.82
== END | disposition home or self-care (01) ==
LOC: C.LAB1850 10:26
PROVIDERS: ATTEND Obstetrics & Gynecology
DX: O09.92 Supervision of high risk pregnancy, unspecified, second trimester (principal); Z3A.00 Weeks of gestation of pregnancy not specified

== ENCOUNTER → 2017-03-16 | Outpatient (CLI) | payer OTHER ==
[2017-03-16 09:27] LABS: PATIENT HEIGHT 142.2 cm
[2017-03-16 10:37] LABS: URINE TOTAL PROTEIN 19.6 mg/dl (0-11.9)
[2017-03-16 11:21] LABS: CREATININE 0.53 mg/dl (0.6-1.2)
== END | disposition home or self-care (01) ==
LOC: C.LAB1850 09:18
PROVIDERS: ATTEND Obstetrics & Gynecology
DX: O12.10 Gestational proteinuria, unspecified trimester (principal); Z3A.00 Weeks of gestation of pregnancy not specified

== ENCOUNTER 2017-03-28 09:20 | Emergency (ER) | payer OTHER ==
[~2017-03-28] VITALS: Ht 167.6 cm; Wt 126.5 kg
[~2017-03-28 09:20] MED LIST changes: -PROM25SU28 PR; -RANI150C4 PO
[2017-03-28 09:25] VITALS: TEMP 36.9; Ht 167.6 cm; Wt 126.5 kg
[2017-03-28] MEDS ORDERED: PROM25SU28 PR (10:29)
[2017-03-28] MEDS ORDERED: SODIUM CHLORIDE 0.9% 1000ML 1,000 ML IV STA (10:36)
[2017-03-28] MEDS ORDERED: SODIUM CHLORIDE 0.9% 1000ML 1,000 ML IV ONE (10:36)
[2017-03-28 11:42] LABS: BUN/CREATININE RATIO 5.7 (10-20); CALCIUM 8.9 mg/dl (8.5-10.1); CREATININE 0.53 mg/dl (0.60-1.20); POTASSIUM 3.4 mmol/L (3.5-5.1)
[2017-03-28 11:43] LABS: BASO % 0.3 %; BASO ABS # 0.02 K/uL (0-0.2); COMPLETE YES; EOS % 2.4 %; HEMATOCRIT 35.2 % (37-47); IG% 0.4 %; MEAN CELL VOLUME 83.2 fL (80-100); MEAN CORPUSCULAR HEMOGLOBIN 28.4 pg (25-34); MEAN CORPUSCULAR HGB CONC 34.1 g/dl (32-36); MEAN PLATELET VOLUME 9.1 fL (7.4-10.4); MONO % 5.9 %; PLATELET COUNT 319 K/uL (130-400); RED BLOOD COUNT 4.23 M/uL (4.2-5.4); WHITE BLOOD COUNT 7.63 K/uL (4.8-10.8)
--- NOTE | 2017-03-28 12:07 | EMERGENCY ROOM VISIT NOTE ---
History Report prepared by Haleigh: Edilia Downey Under the Supervision of: Dr. Hudson Calles M.D. First contact with patient: 10:31 Chief Complaint: ABDOMINAL PAIN Stated Complaint: SHARP PAIN ON BOTH LOWER SIDES 3MO Nursing Triage Summary: Pt states she is three months . Lower abd pain x 3 days, right flank pain for a couple mos "I figured that was related to the ." Pt denies vaginal bleeding/discharge. States had a soft BM with bleeding "it's happened a couple times." History of Present Illness The patient is a 31 year old female who presents to the Emergency Room with complaints of worsening lower abdominal pain for the past 3 days. The patient is about 3-4 months . She has been having right flank pain for the past couple of months that she thought was related to her , but it has worsened over the past 3 days as well. She describes her pain as cramping and rates it as an 8/10 in severity. She noticed bright red blood in her stool this morning. She has not been straining to have a bowel movement. She has been very nauseated and has been vomiting frequently throughout this entire . The patient denies any abnormal vaginal discharge or bleeding. She denies cough and urinary symptoms. She has had one previous US that showed an IUP at 8 weeks. The patient is . Source of History: patient Onset: 3 days ago Position: abdomen Symptom Intensity: 8/10 Quality: cramping Timing: worsening Associated Symptoms: + nausea, + vomiting, + hematochezia, No cough, No urinary symptoms Note: She denies any abnormal bleeding or discharge. Pt is 3-4 months . Review of Systems See HPI for pertinent positives & negatives. A total of 10 systems reviewed and were otherwise negative. Past Medical & Surgical Medical Problems: (1) Asthma (2) Chest pain (3) Chest pain (4) Gestation period, 26 weeks (5) (6) Shortness of breath Old medical records were reviewed. Nurse's notes were reviewed and I agree with. This is her third Family History Diabetes mellitus Social History Smoking Status: Never Smoker Alcohol Use: none Marital Status: Housing Status: lives with family Occupation Status: employed Current/Historical Medications Scheduled PRN Promethazine Hcl (Phenergan Suppository), 25 MG CA Q6H PRN for Nausea Allergies Coded Allergies: Penicillins (Verified Allergy, Severe, HIVES, 02/24/17) Shellfish Allergy (Verified Allergy, Severe, ANAPHYLAXIS, 02/24/17) ALL SEAFOOD Physical Exam Vital Signs Date Time Temp Pulse Resp B/P (MAP) Pulse Ox O2 Delivery O2 Flow Rate FiO2 03/28/17 14:30 88 18 121/82 98 03/28/17 13:20 79 18 102/77 100 Room Air 03/28/17 11:21 84 18 116/74 100 Room Air 03/28/17 09:25 36.9 95 20 125/75 97 Room Air Physical Exam General: Well developed well nourished non ill appearing gravid young female in no acute distress, breathing comfortably on room air. Normal speech HEENT: Normal cephalic atraumatic. Pupils are equal round and reactive to light. Extraocular movements are intact. Oropharynx is pink with moist mucous membranes. No swelling of the mouth lips or tongue. Neck: Supple with a midline trachea. No meningeal signs or stiffness, no JVD or bruits. No Stridor. Chest: Clear to auscultation bilaterally. No wheezes or rhonchi. No increased work of breathing. Heart: regular rate and rhythm. Abdomen: Soft, nondistended without rebound guarding or rigidity. Mildly tender on right lateral flank. Extremities: No cyanosis clubbing or edema. No calf tenderness or assymetry Spine/Back. Non tender to palpation. No CVA tenderness Skin: Good turgor without rashes. Neurologic exam: Cranial nerves two through 12 are intact. Motor and sensation are intact and symmetrical throughout. Medical Decision & Procedures ER Provider Diagnostic Interpretation: Radiology results as stated below per my review and radiologist interpretation: BILIARY ULTRASOUND CLINICAL HISTORY: Right upper quadrant abdominal pain COMPARISON STUDY: No previous studies for comparison. FINDINGS: The liver appears sonographically normal. The gallbladder appears sonographically normal. The pancreas appears sonographically normal. There is no ductal dilatation. The common bile duct measures 4 mm. There is no right-sided hydronephrosis. IMPRESSION: Normal study Electronically signed by: Bunny Dos Santos M.D. 03/28/2017 12:13 PM Dictated Date/Time: 03/28/2017 12:13 PM LIMITED (US) HISTORY: 31 years-old Female eval for demise . Sharp lower abdominal pain with . Concern for demise. COMPARISON: ultrasound 02/24/2017 TECHNIQUE: Multiple real-time sonographic images of the deep pelvic structures were obtained transabdominally assessing grayscale appearance, color flow and M-mode analysis. FINDINGS: Placenta is in an anterior location. Mildly heterogeneous appearance of the anterior placenta is seen with ill-defined margins measuring up to 7.0 x 2.7 x 6.7 cm with internal vascularity identified. This is nonspecific and was not definitely appreciated on prior study. Cervix is closed, 4.9 cm in length. ADRIAN appears normal. Intrauterine fetus is noted with heart rate measured at 147 bpm. Femur length measures 3.3 cm correlating with estimated gestational age of 20 weeks and 1 day. IMPRESSION: 1. Single living intrauterine gestation. 2. Closed cervix. 3. Nonspecific mildly heterogeneous appearance of the anterior placenta is noted as above. Attention at follow-up recommended. The above report was generated using voice recognition software. It may contain grammatical, syntax or spelling errors. Electronically signed by: Paul De La Cruz M.D. 03/28/2017 12:29 PM Dictated Date/Time: 03/28/2017 12:24 PM Laboratory Results 03/28/17 10:45 Red Blood Count 4.23, Mean Corpuscular Volume 83.2, Mean Corpuscular Hemoglobin 28.4, Mean Corpuscular Hemoglobin Concent 34.1, Mean Platelet Volume 9.1, Neutrophils (%) (Auto) 70.0, Lymphocytes (%) (Auto) 21.0, Monocytes (%) (Auto) 5.9, Eosinophils (%) (Auto) 2.4, Basophils (%) (Auto) 0.3, Neutrophils # (Auto) 5.35, Lymphocytes # (Auto) 1.60, Monocytes # (Auto) 0.45, Eosinophils # (Auto) 0.18, Basophils # (Auto) 0.02 03/28/17 10:45 Test 03/28/17 10:45 03/28/17 12:33 White Blood Count 7.63 K/uL (4.8-10.8) Red Blood Count 4.23 M/uL (4.2-5.4) Hemoglobin 12.0 g/dL (12.0-16.0) Hematocrit 35.2 % (37-47) Mean Corpuscular Volume 83.2 fL (80-100) Mean Corpuscular Hemoglobin 28.4 pg (25-34) Mean Corpuscular Hemoglobin Concent 34.1 g/dl (32-36) Platelet Count 319 K/uL (130-400) Mean Platelet Volume 9.1 fL (7.4-10.4) Neutrophils (%) (Auto) 70.0 % Lymphocytes (%) (Auto) 21.0 % Monocytes (%) (Auto) 5.9 % Eosinophils (%) (Auto) 2.4 % Basophils (%) (Auto) 0.3 % Neutrophils # (Auto) 5.35 K/uL (1.4-6.5) Lymphocytes # (Auto) 1.60 K/uL (1.2-3.4) Monocytes # (Auto) 0.45 K/uL (0.11-0.59) Eosinophils # (Auto) 0.18 K/uL (0-0.5) Basophils # (Auto) 0.02 K/uL (0-0.2) RDW Standard Deviation 41.3 fL (36.4-46.3) RDW Coefficient of Variation 13.8 % (11.5-14.5) Immature Granulocyte % (Auto) 0.4 % Immature Granulocyte # (Auto) 0.03 K/uL (0.00-0.02) Anion Gap 10.0 mmol/L (3-11) Est Creatinine Clear Calc Drug Dose 211.1 ml/min Estimated GFR () 147.7 Estimated GFR (Non- 127.4 BUN/Creatinine Ratio 5.7 (10-20) Calcium Level 8.9 mg/dl (8.5-10.1) Total Bilirubin 0.4 mg/dl (0.2-1) Direct Bilirubin 0.1 mg/dl (0-0.2) Aspartate Amino Transf (AST/SGOT) 14 U/L (15-37) Alanine Aminotransferase (ALT/SGPT) 13 U/L (12-78) Alkaline Phosphatase 84 U/L (45-117) Total Protein 7.0 gm/dl (6.4-8.2) Albumin 2.6 gm/dl (3.4-5.0) Lipase 66 U/L (73-393) Urine Color YELLOW Urine Appearance CLOUDY (CLEAR) Urine pH 8.0 (4.5-7.5) Urine Specific [place] 1.005 (1.000-1.030) Urine Protein NEG (NEG) Urine Glucose (UA) NEG (NEG) Urine Ketones NEG (NEG) Urine Occult Blood NEG (NEG) Urine Nitrite NEG (NEG) Urine Bilirubin NEG (NEG) Urine Urobilinogen NEG (NEG) Urine Leukocyte Esterase MODERATE (NEG) Urine WBC (Auto) 1-5 /hpf (0-5) Urine RBC (Auto) 0-4 /hpf (0-4) Urine Hyaline Casts (Auto) 1-5 /lpf (0-5) Urine Epithelial Cells (Auto) >30 /lpf (0-5) Urine Bacteria (Auto) 1+ (NEG) Laboratory studies as stated above per my review. Medications Administered Medications (Trade) Dose Ordered Sig/Jenn Route Start Time Stop Time Status Last Admin Dose Admin Sodium Chloride 1,000 ml @ 999 mls/hr Q1H1M STAT IV 03/28/17 10:36 03/28/17 11:36 DC 03/28/17 10:51 999 MLS/HR Sodium Chloride 1,000 ml @ 200 mls/hr Q5H ONCE IV 03/28/17 10:36 03/28/17 15:35 DC 03/28/17 10:51 200 MLS/HR ED Course 1031: Past medical records reviewed. The patient was evaluated in room B2, and a complete history and physical examination were performed. 1036: NSS 1000 ml @ 200 mls/hr IV, NSS 1000 ml @ 999 mls/hr IV 1400: Upon reevaluation the patient is feeling better. 1407: I discussed the patient's case with Dr. Bentley of ob-glass designer. She agrees with the treatment plan and will follow-up with the patient in the office tomorrow. 1416: I reassessed the patient at this time. She is feeling better and resting comfortably. I discussed the results and treatment plan with the patient. I answered all pertaining questions that she had. She expressed understanding and verbalized agreement. The patient will be discharged home. Medical Decision Differential diagnoses includes complication, gallbladder disease, kidney stone, kidney infection, electrolyte or metabolic abnormality. Medication Reconciliation: I attest that I have personally reviewed the patient' s current medication list. Blood pressure Screening: Patient was found to have normal blood pressure on screening and does not require follow-up. This patient comes in as described above. She was placed in room B2. She is here for treatment and evaluation of abdominal discomfort mostly in her right side. She's had some vomiting .she also has some blood in her stool .she had some lower abdominal discomfort at one point but she does not have any now . she 's had no bleeding or discharge or urinary symptoms. She is approximately 3 months . IV access established hydrated normal saline heart heart rate was documented at 135-145. Ultrasound of the fetus appeared normal with a closed cervix. Ultrasound of the gallbladder was unremarkable and she has no hydronephrosis right kidney. She has no fever or white count to suggest infection she is not anemic. She has no acute electrolyte or metabolic abnormalities. She's had nothing to suggest liver, gallbladder, or pancreas disease. She feels better and would like to go home. She has been using Phenergan suppositories which may cause some of the rectal bleeding. She only a small amount. This may be just from some nausea. She feels good and has an appointment tomorrow with her certified [facility] administrator. I did discuss case with Dr. Betnley agrees with the plan and she will be discharged. I did encourage her return if : increasing pain or any new problems or concerns. Consults Time Called: 1403 Consulting Physician: Dr. Bentley Returned Call: [phone] I discussed the patient's case with Dr. Bentley of ob-glass designer. She agrees with the treatment plan and will follow-up with the patient in the office tomorrow. Impression Primary Impression: Right flank pain Additional Impression: Scribe Attestation The scribe's documentation has been prepared under my direction and personally reviewed by me in its entirety. I confirm that the note above accurately reflects all work, treatment, procedures, and medical decision making performed by me. Departure Information Dispostion Home / Self-Care Referrals No Doctor, Assigned (PCP) Forms HOME CARE DOCUMENTATION FORM, IMPORTANT VISIT INFORMATION Patient Instructions My [facility] Additional Instructions Rest Drink plenty of fluids Keep your appointment tommorrow for recheck Return if increasing pain, worsening symptoms, vaginal bleeding, fever or chills , any new problems or concerns Problem Qualifiers Additional Impression: Weeks of gestation: unspecified Qualified Codes: Z34.90 - Encounter for supervision of normal , unspecified, unspecified trimester
--- NOTE | 2017-03-28 12:14 | DIAGNOSTIC IMAGING REPORT ---
BILIARY ULTRASOUND CLINICAL HISTORY: Right upper quadrant abdominal pain COMPARISON STUDY: No previous studies for comparison. FINDINGS: The liver appears sonographically normal. The gallbladder appears sonographically normal. The pancreas appears sonographically normal. There is no ductal dilatation. The common bile duct measures 4 mm. There is no right-sided hydronephrosis. IMPRESSION: Normal study Electronically signed by: Bunny Dos Santos M.D. 03/28/2017 12:13 PM Dictated Date/Time: 03/28/2017 12:13 PM
--- NOTE | 2017-03-28 12:30 | DIAGNOSTIC IMAGING REPORT ---
LIMITED (US) HISTORY: 31 years-old Female eval for demise . Sharp lower abdominal pain with . Concern for demise. COMPARISON: ultrasound 02/24/2017 TECHNIQUE: Multiple real-time sonographic images of the deep pelvic structures were obtained transabdominally assessing grayscale appearance, color flow and M-mode analysis. FINDINGS: Placenta is in an anterior location. Mildly heterogeneous appearance of the anterior placenta is seen with ill-defined margins measuring up to 7.0 x 2.7 x 6.7 cm with internal vascularity identified. This is nonspecific and was not definitely appreciated on prior study. Cervix is closed, 4.9 cm in length. ADRIAN appears normal. Intrauterine fetus is noted with heart rate measured at 147 bpm. Femur length measures 3.3 cm correlating with estimated gestational age of 20 weeks and 1 day. IMPRESSION: 1. Single living intrauterine gestation. 2. Closed cervix. 3. Nonspecific mildly heterogeneous appearance of the anterior placenta is noted as above. Attention at follow-up recommended. The above report was generated using voice recognition software. It may contain grammatical, syntax or spelling errors. Electronically signed by: Paul De La Cruz M.D. 03/28/2017 12:29 PM Dictated Date/Time: 03/28/2017 12:24 PM
[2017-03-28 12:44] LABS: URINE APPEARANCE CLOUDY (CLEAR); URINE BILIRUBIN NEG (NEG); URINE COLOR YELLOW; URINE EPITHELIAL CELL AUTO >30 /lpf (0-5); URINE NITRITE NEG (NEG); URINE SPECIFIC GRAVITY 1.005 (1.000-1.030); UROBILINOGEN NEG (NEG)
[2017-03-28 12:49] LABS: MANUAL MICROSCOPIC REQUIRED? NO; REVIEW REQ? NO
[2017-03-28 14:30] VITALS: BP 121/82; PULSE 88; O2SAT 98
== END 2017-03-28 14:32 | disposition home or self-care (01) ==
LOC: C.EDB 09:23
DX: O26.92 Pregnancy related conditions, unspecified, second trimester (principal); R10.30 Lower abdominal pain, unspecified; J45.909 Unspecified asthma, uncomplicated; Z88.0 Allergy status to penicillin; Z91.018 Allergy to other foods; Z83.3 Family history of diabetes mellitus

== ENCOUNTER 2017-04-02 09:24 | Emergency (ER) | payer OTHER ==
[~2017-04-02 09:24] MED LIST changes: -ONDA4TAB46 PO; +PROM25SU28 PR
[2017-04-02] MEDS ORDERED: SODIUM CHLORIDE 0.9% 1000ML 1,000 ML IV STA (09:53)
--- NOTE | 2017-04-02 10:07 | EMERGENCY ROOM VISIT NOTE ---
History First contact with patient: 09:34 Chief Complaint: VOMITING Stated Complaint: VOMITING BLOOD,SIDE PAIN History of Present Illness The patient is a 31 year old female who presents to the Emergency Room with complaints of right flank pain and severe nausea/vomiting. The patient states her right flank pain started about one week ago and has been getting progressively worse. She has been having nausea and vomiting for the past several weeks secondary to , but she also states this has been getting worse. She has been unable to keep any food or drink down, stating she vomited bile occasionally streaked with blood. She states she is approximately 4-5 months , . She has been taking Phenergan, Tums, and Tylenol without relief of nausea or pain. She denies any fevers or chills, chest pain, shortness of breath, syncope, diarrhea or constipation, dysuria, vaginal bleeding or abnormal discharge, rash. Review of Systems A complete 10 point review of systems was reviewed with the patient with pertinent positives and negatives as per history of present illness. All else were negative. Past Medical/Surgical History Medical Problems: (1) Asthma (2) Chest pain (3) Chest pain (4) Gestation period, 26 weeks (5) (6) Shortness of breath Family History Diabetes mellitus Social History Smoking Status: Never Smoker Alcohol Use: none Marital Status: Housing Status: lives with family Occupation Status: employed Current/Historical Medications Scheduled Ranitidine Hcl (Ranitidine Hcl), 1 CAP PO BID Scheduled PRN Promethazine Hcl (Phenergan Suppository), 25 MG AL Q6H PRN for Nausea Physical Exam Vital Signs Date Time Temp Pulse Resp B/P (MAP) Pulse Ox O2 Delivery O2 Flow Rate FiO2 04/02/17 16:47 94 18 135/87 100 04/02/17 15:19 85 18 105/67 100 Room Air 04/02/17 13:19 82 16 102/46 98 Room Air 04/02/17 11:08 36.7 92 20 119/65 99 Room Air 04/02/17 09:30 36.9 91 20 114/71 99 Room Air Physical Exam CONSTITUTIONAL: No acute distress. Well appearing and well nourished. Alert and oriented X 4 with normal affect. HEENT: Normocephalic, atraumatic. Pupils equal, round and reactive to light, EOMI. TMs normal. Pharynx normal. NECK: Supple, full active range of motion without discomfort. RESPIRATORY: Clear to auscultation bilaterally with no wheezing, crackles, rhonchi or stridor. Equal expansion bilaterally. CARDIOVASCULAR: Regular rate and rhythm with no murmurs, rubs or gallops. Normal peripheral perfusion. No edema. GASTROINTESTINAL: Significantly tender in the right flank to light and deep palpation, no definite Delgado's or McBurney's point tenderness, no rebound. Positive guarding. Positive right-sided CVA tenderness. Soft, nondistended, obese. Bowel sounds present in all quadrants. MUSCULOSKELETAL: Full range of motion of all joints without discomfort. INTEGUMENTARY: No rash or other significant dermatologic conditions noted. NEUROLOGIC: Cranial nerves II-XII grossly intact. No focal neurologic deficits noted. Medical Decision & Procedures ER Provider Diagnostic Interpretation: ABDOMEN WITHOUT CONTRAST CLINICAL HISTORY: 31 years-old Female presenting with right flank/abd pain, eval for appendicitis, . TECHNIQUE: Multisequence, multiplanar MR imaging of the abdomen was performed without the use of intravenous contrast. IV contrast: None. COMPARISON: None. FINDINGS: Localizer images: Unremarkable. Lung bases: Lung bases clear. Normal heart size. No pericardial or pleural effusion. Liver: Normal noncontrast appearance. Biliary: No gross biliary ductal dilatation allowing for noncontrast technique. Normal gallbladder. Pancreas: Normal noncontrast appearance. Spleen: Normal noncontrast appearance. Adrenal glands: Normal noncontrast appearance. Kidneys and ureters: Normal noncontrast appearance. No hydronephrosis. Bowel: Appendix nonvisualized. No convincing evidence of inflammatory change in the right lower quadrant. No bowel obstruction. Peritoneal cavity: Trace free fluid in the right lower quadrant. Vasculature: Normal noncontrast appearance. Dilated right gonadal vein. Lymph nodes: No gross lymphadenopathy allowing for noncontrast technique. Other: Gravid uterus with normal-appearing fetus. Anterior placenta complication. No perigestational hemorrhage. Uterine contraction noted along the posterior wall. Cervix long and closed. Bilateral ovaries normal appearing. Trace free fluid adjacent to the right ovary. Abdominal wall: Normal. Musculoskeletal: Normal. IMPRESSION: 1. No acute intra-abdominal pathology. 2. Trace right adnexal free fluid without convincing evidence of inflammatory change. However, the appendix is not visualized. There is continuing clinical concern for this diagnosis, repeat examination versus right lower quadrant ultrasound could be obtained. 3. Gravid uterus. PELVIS WITHOUT CONTRAST (MRI) HISTORY: right flank/abd pain, eval appendix TECHNIQUE: Multiplanar multisequence MRI of the pelvis was performed without the use of intravenous contrast. COMPARISON STUDY: Abdominal ultrasound 03/28/2017 FINDINGS: Single intrauterine gestation. The fetus is in a breech presentation. There is an anterior placenta. No evidence for subchorionic hematoma. The visualized bowel shows no definite thickening or obstruction. Trace fluid at the cecal base and adjacent to the right ovary. The appendix is not identified with certainty. There are no definite inflammatory changes identified within the right lower quadrant. IMPRESSION: The appendix is not identified with certainty. There is trace fluid at the cecal base but no definite inflammatory changes. If the patient symptoms continue to progress then repeat MRI/ultrasound can be used for further evaluation. Laboratory Results 04/02/17 10:05 Red Blood Count 4.47, Mean Corpuscular Volume 82.6, Mean Corpuscular Hemoglobin 27.1, Mean Corpuscular Hemoglobin Concent 32.8, Mean Platelet Volume 8.7, Neutrophils (%) (Auto) 71.4, Lymphocytes (%) (Auto) 19.7, Monocytes (%) (Auto) 5.1, Eosinophils (%) (Auto) 3.1, Basophils (%) (Auto) 0.3, Neutrophils # (Auto) 5.49, Lymphocytes # (Auto) 1.51, Monocytes # (Auto) 0.39, Eosinophils # (Auto) 0.24, Basophils # (Auto) 0.02 04/02/17 10:05 Test 04/02/17 10:05 04/02/17 14:05 White Blood Count 7.68 K/uL (4.8-10.8) Red Blood Count 4.47 M/uL (4.2-5.4) Hemoglobin 12.1 g/dL (12.0-16.0) Hematocrit 36.9 % (37-47) Mean Corpuscular Volume 82.6 fL (80-100) Mean Corpuscular Hemoglobin 27.1 pg (25-34) Mean Corpuscular Hemoglobin Concent 32.8 g/dl (32-36) Platelet Count 329 K/uL (130-400) Mean Platelet Volume 8.7 fL (7.4-10.4) Neutrophils (%) (Auto) 71.4 % Lymphocytes (%) (Auto) 19.7 % Monocytes (%) (Auto) 5.1 % Eosinophils (%) (Auto) 3.1 % Basophils (%) (Auto) 0.3 % Neutrophils # (Auto) 5.49 K/uL (1.4-6.5) Lymphocytes # (Auto) 1.51 K/uL (1.2-3.4) Monocytes # (Auto) 0.39 K/uL (0.11-0.59) Eosinophils # (Auto) 0.24 K/uL (0-0.5) Basophils # (Auto) 0.02 K/uL (0-0.2) RDW Standard Deviation 41.6 fL (36.4-46.3) RDW Coefficient of Variation 13.8 % (11.5-14.5) Immature Granulocyte % (Auto) 0.4 % Immature Granulocyte # (Auto) 0.03 K/uL (0.00-0.02) Erythrocyte Sedimentation Rate 46 mm/hr (0-21) Anion Gap 12.0 mmol/L (3-11) Estimated GFR () 141.0 Estimated GFR (Non- 121.7 BUN/Creatinine Ratio 6.1 (10-20) Calcium Level 9.1 mg/dl (8.5-10.1) Total Bilirubin 0.3 mg/dl (0.2-1) Direct Bilirubin < 0.1 mg/dl (0-0.2) Aspartate Amino Transf (AST/SGOT) 11 U/L (15-37) Alanine Aminotransferase (ALT/SGPT) 11 U/L (12-78) Alkaline Phosphatase 92 U/L (45-117) C-Reactive Protein 2.29 mg/dl (0-0.29) Total Protein 7.3 gm/dl (6.4-8.2) Albumin 2.6 gm/dl (3.4-5.0) Lipase 67 U/L (73-393) Urine Color YELLOW Urine Appearance CLEAR (CLEAR) Urine pH 7.5 (4.5-7.5) Urine Specific [place] 1.033 (1.000-1.030) Urine Protein NEG (NEG) Urine Glucose (UA) NEG (NEG) Urine Ketones TRACE (NEG) Urine Occult Blood NEG (NEG) Urine Nitrite NEG (NEG) Urine Bilirubin NEG (NEG) Urine Urobilinogen NEG (NEG) Urine Leukocyte Esterase NEG (NEG) Medications Administered Medications (Trade) Dose Ordered Sig/Jenn Route Start Time Stop Time Status Last Admin Dose Admin Sodium Chloride 1,000 ml @ 999 mls/hr Q1H1M STAT IV 04/02/17 09:53 04/02/17 10:53 DC 04/02/17 10:00 999 MLS/HR Acetaminophen 100 ml @ 400 mls/hr NOW STAT IV 04/02/17 10:59 04/02/17 11:13 DC 04/02/17 11:08 400 MLS/HR Metoclopramide HCl 10 mg/Syringe 2 ml @ 2 mls/min TODAY@1015 IV 04/03/17 10:15 04/03/17 10:45 04/02/17 11:33 2 MLS/MIN Ranitidine HCl (zANTac TAB) 150 mg NOW ONCE PO 04/02/17 16:00 04/02/17 16:01 DC 04/02/17 16:41 150 MG Medical Decision CC: Patient presenting with complaint of right flank pain and nausea/vomiting Interpretation of Labs: No leukocytosis, no anemia, no significant leftward abnormalities, normal renal function, normal liver enzymes and lipase. Mildly elevated inflammatory markers. UA shows trace proteinuria, otherwise negative. Differential Diagnosis: Includes, but not limited to UTI, pyelonephritis, renal stone, cholecystitis, cholelithiasis, appendicitis, pancreatitis, gastritis, hyperemesis gravidarum, dehydration, musculoskeletal pain/strain/sprain Medication Reconciliation: I attest that I have personally reviewed the patient' s current medication list. Vital signs review: I reviewed the patient's vital signs and interpret them as follows: T: Afebrile; BP: Normotensive; HR: Tachycardic; RR: Within normal limits; Pulse Ox: Within normal limits on room air. Blood pressure screening: The patient was found to have normal blood pressure on screening and does not require follow-up for repeat blood pressure check. Summary: Patient was evaluated at bedside, history of physical exam performed. Patient is alert and oriented, in no acute distress, resting calmly in the stretcher. Patient is quite tender along the entire right flank including the right upper and lower quadrants. I reviewed the patient's chart including her most recent visit 5 days ago at which time she had a right upper quadrant ultrasound that showed a normal gallbladder and right kidney with no hydronephrosis. Given her amount of tenderness on the right lower quadrant, I have some concern for appendicitis, which has not yet been ruled out as a cause for patient's pain. Orders were placed at bedside for labs, UA, IV fluids for hydration, IV Tylenol for pain, IV Reglan for nausea/vomiting, MRI abdomen/pelvis to evaluate for appendicitis. Patient discussed with Dr. Monreal, who agrees with my assessment and plan. Labs reviewed as above, in no acute abnormalities. MR imaging reviewed, no definite signs of appendicitis, but cannot fully rule this out as a appendix is not visible. Spoke with Dr. Anderson, OB, he states that if there is concern for appendicitis , surgery should be consulted. I spoke with Dr. Matthews, general surgery, who personally evaluated the patient and reviewed the MRI, and states he has a very low suspicion for appendicitis. Given the otherwise negative workup, the patient's pain may be musculoskeletal in nature, or related to her expanding . I spoke again with Dr. Anderson, and notified him of Dr. Matthews's impression, and our plan for sending the patient home, he is comfortable with this plan. Patient should have OB follow-up this week. Patient reassessed multiple times throughout ED stay, she is improved after interventions, eating a sandwich and tolerating this well. Given the patient's complaint of "sour stomach" and ongoing issues with nausea and stomach discomfort, will start her on ranitidine to treat this. Patient was updated on all results and plan for discharge, as well as follow-up plans, she verbalized understanding. Patient was also given strict return precautions should her symptoms worsen, she verbalized understanding. Patient was discharged home in stable condition and ambulatory. Impression Primary Impression: Right flank pain Additional Impression: Nausea/vomiting in Departure Information Dispostion Home / Self-Care Condition GOOD Prescriptions Ranitidine Hcl (RANITIDINE HCL) 150 Mg Cap 1 CAP PO BID for 30 Days, #60 CAP 0 Refills Prov: Mile Alexander CRNP 04/02/17 Referrals No Doctor, Assigned (PCP) Patient Instructions ED Flank Pain Uncertain Cause, ED Strain Abdominal Muscle, My [facility] Additional Instructions You have been treated in the Emergency Department your Abdominal Pain. Laboratory results and imaging studies have ruled out any emergent causes for your abdominal pain which would warrant admission or surgery. You have been prescribed ranitidine 150 mg twice a day to be used to treat your sour stomach. You may continue taking Zofran or Phenergan for nausea/vomiting as prescribed by your OB provider. - Regular strength (325mg/tab) Tylenol (acetaminophen) 2 tabs every 4-6 hours as needed. Do not exceed 10 tablets in a 24 hour period. Avoid taking more than 3000 mg of Tylenol per day. This includes any other sources of acetaminophen you may take on a regular basis. Try soaking in hot bath or using a heating pad to your right side to help improve your discomfort. Drink plenty of fluids and stay well hydrated. Please call your OB office tomorrow to set up a follow-up appointment this week. Return to the emergency department for any worsening symptoms, including severe worsening abdominal pain, fevers or chills, worsening nausea/vomiting, vomiting up blood, blood in your stool or urine, or any other concerns. Problem Qualifiers
[2017-04-02 10:17] LABS: BASO % 0.3 %; BASO ABS # 0.02 K/uL (0-0.2); COMPLETE YES; EOS % 3.1 %; HEMATOCRIT 36.9 % (37-47); IG% 0.4 %; LYMPH % 19.7 %; LYMPH ABS # 1.51 K/uL (1.2-3.4); MEAN CELL VOLUME 82.6 fL (80-100); MEAN CORPUSCULAR HEMOGLOBIN 27.1 pg (25-34); MEAN CORPUSCULAR HGB CONC 32.8 g/dl (32-36); MEAN PLATELET VOLUME 8.7 fL (7.4-10.4); MONO % 5.1 %; NEUT % 71.4 %; PLATELET COUNT 329 K/uL (130-400); RED BLOOD COUNT 4.47 M/uL (4.2-5.4); WHITE BLOOD COUNT 7.68 K/uL (4.8-10.8)
[2017-04-02 10:35] LABS: ALT/SGPT 11 U/L (12-78); BLOOD UREA NITROGEN 4 mg/dl (7-18); BUN/CREATININE RATIO 6.1 (10-20); CALCIUM 9.1 mg/dl (8.5-10.1); CARBON DIOXIDE 21 mmol/L (21-32); CHLORIDE 105 mmol/L (98-107); CREATININE 0.61 mg/dl (0.60-1.20); GLUCOSE 124 mg/dl (70-99); POTASSIUM 3.6 mmol/L (3.5-5.1); SODIUM 138 mmol/L (136-145)
[2017-04-02 10:38] LABS: ALKALINE PHOSPHATASE 92 U/L (45-117); AST/SGOT 11 U/L (15-37)
[2017-04-02] MEDS ORDERED: METOCLOPRAMIDE HCL INJ 5 MG/ML 2 ML VIAL IV STA (10:59)
[2017-04-02] MEDS ORDERED: ACETAMINOPHEN IV 100 ML IV STA (10:59)
[2017-04-02 11:08] VITALS: TEMP 36.7
--- NOTE | 2017-04-02 12:54 | DIAGNOSTIC IMAGING REPORT ---
PELVIS WITHOUT CONTRAST (MRI) HISTORY: right flank/abd pain, eval appendix TECHNIQUE: Multiplanar multisequence MRI of the pelvis was performed without the use of intravenous contrast. COMPARISON STUDY: Abdominal ultrasound 03/28/2017 FINDINGS: Single intrauterine gestation. The fetus is in a breech presentation. There is an anterior placenta. No evidence for subchorionic hematoma. The visualized bowel shows no definite thickening or obstruction. Trace fluid at the cecal base and adjacent to the right ovary. The appendix is not identified with certainty. There are no definite inflammatory changes identified within the right lower quadrant. IMPRESSION: The appendix is not identified with certainty. There is trace fluid at the cecal base but no definite inflammatory changes. If the patient symptoms continue to progress then repeat MRI/ultrasound can be used for further evaluation. Electronically signed by: Dalton Cruz M.D. 04/02/2017 12:53 PM Dictated Date/Time: 04/02/2017 12:45 PM
--- NOTE | 2017-04-02 12:57 | DIAGNOSTIC IMAGING REPORT ---
ABDOMEN WITHOUT CONTRAST CLINICAL HISTORY: 31 years-old Female presenting with right flank/abd pain, eval for appendicitis, . TECHNIQUE: Multisequence, multiplanar MR imaging of the abdomen was performed without the use of intravenous contrast. IV contrast: None. COMPARISON: None. FINDINGS: Localizer images: Unremarkable. Lung bases: Lung bases clear. Normal heart size. No pericardial or pleural effusion. Liver: Normal noncontrast appearance. Biliary: No gross biliary ductal dilatation allowing for noncontrast technique. Normal gallbladder. Pancreas: Normal noncontrast appearance. Spleen: Normal noncontrast appearance. Adrenal glands: Normal noncontrast appearance. Kidneys and ureters: Normal noncontrast appearance. No hydronephrosis. Bowel: Appendix nonvisualized. No convincing evidence of inflammatory change in the right lower quadrant. No bowel obstruction. Peritoneal cavity: Trace free fluid in the right lower quadrant. Vasculature: Normal noncontrast appearance. Dilated right gonadal vein. Lymph nodes: No gross lymphadenopathy allowing for noncontrast technique. Other: Gravid uterus with normal-appearing fetus. Anterior placenta complication. No perigestational hemorrhage. Uterine contraction noted along the posterior wall. Cervix long and closed. Bilateral ovaries normal appearing. Trace free fluid adjacent to the right ovary. Abdominal wall: Normal. Musculoskeletal: Normal. IMPRESSION: 1. No acute intra-abdominal pathology. 2. Trace right adnexal free fluid without convincing evidence of inflammatory change. However, the appendix is not visualized. There is continuing clinical concern for this diagnosis, repeat examination versus right lower quadrant ultrasound could be obtained. 3. Gravid uterus. Electronically signed by: Sami Bishop M.D. 04/02/2017 12:56 PM Dictated Date/Time: 04/02/2017 12:46 PM
[2017-04-02 14:28] LABS: URINE APPEARANCE CLEAR (CLEAR); URINE BILIRUBIN NEG (NEG); URINE COLOR YELLOW; URINE NITRITE NEG (NEG); URINE PH 7.5 (4.5-7.5); URINE SPECIFIC GRAVITY 1.033 (1.000-1.030); UROBILINOGEN NEG (NEG)
[2017-04-02 14:35] LABS: MANUAL MICROSCOPIC REQUIRED? NO; REVIEW REQ? NO
[2017-04-02] MEDS ORDERED: RANITIDINE HCL 150 MG TAB PO ONE (16:00)
[2017-04-02] MEDS ORDERED: RANI150C4 PO (16:01)
--- NOTE | 2017-04-02 16:16 | Surgery Progress Note ---
Surgery Progress Note Date of Service Apr 02, 2017. Subjective 04/02/17- see dictated consult Objective Vital Signs: Date Time Temp Pulse Resp B/P (MAP) Pulse Ox O2 Delivery O2 Flow Rate FiO2 04/02/17 15:19 85 18 105/67 100 Room Air 04/02/17 13:19 82 16 102/46 98 Room Air 04/02/17 11:08 36.7 92 20 119/65 99 Room Air 04/02/17 09:30 36.9 91 20 114/71 99 Room Air Laboratory Results: Results Past 24 Hours Test 04/02/17 10:05 04/02/17 14:05 Range/Units White Blood Count 7.68 4.8-10.8 K/uL Red Blood Count 4.47 4.2-5.4 M/uL Hemoglobin 12.1 12.0-16.0 g/dL Hematocrit 36.9 37-47 % Mean Corpuscular Volume 82.6 80-100 fL Mean Corpuscular Hemoglobin 27.1 25-34 pg Mean Corpuscular Hemoglobin Concent 32.8 32-36 g/dl Platelet Count 329 130-400 K/uL Mean Platelet Volume 8.7 7.4-10.4 fL Neutrophils (%) (Auto) 71.4 % Lymphocytes (%) (Auto) 19.7 % Monocytes (%) (Auto) 5.1 % Eosinophils (%) (Auto) 3.1 % Basophils (%) (Auto) 0.3 % Neutrophils # (Auto) 5.49 1.4-6.5 K/uL Lymphocytes # (Auto) 1.51 1.2-3.4 K/uL Monocytes # (Auto) 0.39 0.11-0.59 K/uL Eosinophils # (Auto) 0.24 0-0.5 K/uL Basophils # (Auto) 0.02 0-0.2 K/uL RDW Standard Deviation 41.6 36.4-46.3 fL RDW Coefficient of Variation 13.8 11.5-14.5 % Immature Granulocyte % (Auto) 0.4 % Immature Granulocyte # (Auto) 0.03 0.00-0.02 K/uL Erythrocyte Sedimentation Rate 46 0-21 mm/hr Sodium Level 138 136-145 mmol/L Potassium Level 3.6 3.5-5.1 mmol/L Chloride Level 105 98-107 mmol/L Carbon Dioxide Level 21 21-32 mmol/L Anion Gap 12.0 3-11 mmol/L Blood Urea Nitrogen 4 7-18 mg/dl Creatinine 0.61 0.60-1.20 mg/dl Estimated GFR () 141.0 Estimated GFR (Non- 121.7 BUN/Creatinine Ratio 6.1 10-20 Random Glucose 124 70-99 mg/dl Calcium Level 9.1 8.5-10.1 mg/dl Total Bilirubin 0.3 0.2-1 mg/dl Direct Bilirubin < 0.1 0-0.2 mg/dl Aspartate Amino Transf (AST/SGOT) 11 15-37 U/L Alanine Aminotransferase (ALT/SGPT) 11 12-78 U/L Alkaline Phosphatase 92 45-117 U/L C-Reactive Protein 2.29 0-0.29 mg/dl Total Protein 7.3 6.4-8.2 gm/dl Albumin 2.6 3.4-5.0 gm/dl Lipase 67 73-393 U/L Urine Color YELLOW Urine Appearance CLEAR CLEAR Urine pH 7.5 4.5-7.5 Urine Specific [place] 1.033 1.000-1.030 Urine Protein NEG NEG Urine Glucose (UA) NEG NEG Urine Ketones TRACE NEG Urine Occult Blood NEG NEG Urine Nitrite NEG NEG Urine Bilirubin NEG NEG Urine Urobilinogen NEG NEG Urine Leukocyte Esterase NEG NEG Microbiology Results 04/02/17 Urine Culture, Received Pending Assessment & Plan 04/02/17- see dictated consult I reviewed pts history, labs and studies. I talked to pt and examined her. I do not think she has appendicitis or other intraabdominal surgical emergency. She seemed relieved with my findings.
[2017-04-02 16:47] VITALS: BP 135/87; PULSE 94; O2SAT 100
--- NOTE | 2017-04-02 23:12 | SURGICAL CONSULTATION ---
DATE OF CONSULTATION: 04/02/2017 REASON FOR CONSULTATION: Abdominal pain. HISTORY OF PRESENT ILLNESS: The patient is a 31-year-old female who is 21 weeks , presenting to the Emergency Room for the second time in the past week to 10 days for abdominal pain. Today, it is more right sided and right flank in nature. She did have lower abdominal pain prior to this with a workup being negative. She did have an MRI of the pelvis and abdomen today which showed no evidence of any inflammatory process, but they were unable to well visualize the appendix, but they saw no tubular inflamed structures in the abdomen. Her white blood cell count is normal. Her temperature is normal. She has had some hyperemesis during this and was actually admitted at one point for this. Upon entering the room, the patient does appear to be relatively normal with normal affect. She does not appear to be clinically ill whatsoever and is relieved at my discussion of her MRI findings. REVIEW OF SYSTEMS: Ten other systems were reviewed and found to be negative. PAST MEDICAL HISTORY: Includes history of asthma and prior pregnancies. FAMILY AND SOCIAL HISTORY: Noncontributory. MEDICATIONS: She takes Phenergan p.r.n. PHYSICAL EXAMINATION: GENERAL: Currently, on examination, her affect is normal. She does not appear to be clinically ill. Her vital signs are normal. HEENT: Her sclerae are nonicteric or erythematous. Her head is otherwise atraumatic. NECK: Supple. ABDOMEN: Her abdomen is soft with normal bowel sounds. She does have some tenderness over the right side and right flank area to palpation. EXTREMITIES: Without edema. LABORATORY DATA: Her white blood cell count is 7.68. IMAGING: I did review her MRI findings with the radiologist and they feel there is absolutely no evidence of any inflammatory process. ASSESSMENT AND PLAN: A 31-year-old female, 21 weeks with right flank and right-sided abdominal pain. I do not think the patient has appendicitis. I do feel that if her symptoms are related to her bowel or appendix, we would have additional clinical findings over the past 7-10 days including laboratory evidence and also some evidence of her imaging studies for inflammation. I do not think she needs to be admitted to the surgical service. I do not think the patient needs to be transferred. I do feel she would be at some risk for surgery at 21 weeks' , and we would need to be relatively sure of her need for surgery. The patient did seem to be somewhat relieved at by findings.
[2017-04-03] MEDS ORDERED: METOCLOPRAMIDE HCL INJ 10 MG in SYRINGE 0 ML IV SCH (10:15)
== END 2017-04-02 16:47 | disposition home or self-care (01) ==
LOC: C.EDB 09:25
DX: O99.89 Other specified diseases and conditions complicating pregnancy, childbirth and the puerperium (principal); R10.30 Lower abdominal pain, unspecified; R11.2 Nausea with vomiting, unspecified; Z3A.21 21 weeks gestation of pregnancy; J45.909 Unspecified asthma, uncomplicated; Z83.3 Family history of diabetes mellitus; Z79.899 Other long term (current) drug therapy

== ENCOUNTER → 2017-06-15 | Outpatient (CLI) | payer OTHER ==
[~2017-06-15] MED LIST changes: +RANI150C4 PO
[2017-06-15 17:57] LABS: GTGD 50 Grams
== END | disposition home or self-care (01) ==
LOC: C.LAB 16:58
PROVIDERS: ATTEND Obstetrics & Gynecology
DX: O09.92 Supervision of high risk pregnancy, unspecified, second trimester (principal)

== ENCOUNTER 2017-07-12 15:57 | Observation (INO) | payer OTHER ==
[2017-07-12 16:48] LABS: BASO % 0.1 %; BASO ABS # 0.01 K/uL (0-0.2); EOS % 1.5 %; EOS ABS # 0.11 K/uL (0-0.5); HEMATOCRIT 35.1 % (37-47); HEMOGLOBIN 11.3 g/dL (12.0-16.0); IG# 0.03 K/uL (0.00-0.02); LYMPH % 20.2 %; LYMPH ABS # 1.49 K/uL (1.2-3.4); MEAN CELL VOLUME 80.3 fL (80-100); MEAN CORPUSCULAR HEMOGLOBIN 25.9 pg (25-34); MEAN PLATELET VOLUME 9.4 fL (7.4-10.4); MONO % 7.6 %; MONO ABS # 0.56 K/uL (0.11-0.59); NEUT % 70.2 %; NEUT ABS # 5.18 K/uL (1.4-6.5); PLATELET COUNT 278 K/uL (130-400); RED CELL DISTRIBUTION WIDTH CV 16.2 % (11.5-14.5); RED CELL DISTRIBUTION WIDTH SD 46.5 fL (36.4-46.3); WHITE BLOOD COUNT 7.38 K/uL (4.8-10.8)
[2017-07-12 16:59] LABS: MEAN CORPUSCULAR HGB CONC 32.2 g/dl (32-36)
[2017-07-12 17:19] LABS: ALT/SGPT 10 U/L (12-78); AST/SGOT 9 U/L (15-37); CREATININE 0.66 mg/dl (0.60-1.20); URIC ACID 3.9 mg/dl (2.6-7.2)
[2017-07-12] MEDS ORDERED: IV FLUIDS COMPLETED PRN (18:00)
== END 2017-07-12 18:00 | disposition home or self-care (01) ==
LOC: C.LD 15:57 → C.OPB 15:57 → C.LD 16:25 → C.OPB 16:25 → C.LD 18:00
PROVIDERS: ADMIT Obstetrics & Gynecology; ATTEND Obstetrics & Gynecology
DX: O09.93 Supervision of high risk pregnancy, unspecified, third trimester (principal); O28.8 Other abnormal findings on antenatal screening of mother; O13.3 Gestational [pregnancy-induced] hypertension without significant proteinuria, third trimester; O21.0 Mild hyperemesis gravidarum

== ENCOUNTER → 2017-07-27 | Outpatient (CLI) | payer OTHER | END | disposition home or self-care (01) | LOC: C.LABSPEC 18:14 | PROVIDERS: ATTEND Obstetrics & Gynecology | DX: O09.93 Supervision of high risk pregnancy, unspecified, third trimester (principal); Z3A.00 Weeks of gestation of pregnancy not specified ==

== ENCOUNTER 2017-08-06 19:54 | Inpatient (IN) | payer OTHER ==
[~2017-08-06] VITALS: Ht 167.6 cm; Wt 128.6 kg
[2017-08-06] MEDS ORDERED: LACTATED RINGER'S 1000ML 1,000 ML IV PRN (19:56)
[2017-08-06] MEDS ORDERED: LACTATED RINGER'S 1000ML 1,000 ML IV SCH (19:56)
[2017-08-06 20:37] LABS: HEMATOCRIT 37.3 % (37-47); HEMOGLOBIN 12.1 g/dL (12.0-16.0); MEAN CELL VOLUME 80.9 fL (80-100); MEAN CORPUSCULAR HEMOGLOBIN 26.2 pg (25-34); MEAN PLATELET VOLUME 9.2 fL (7.4-10.4); PLATELET COUNT 316 K/uL (130-400); RED CELL DISTRIBUTION WIDTH CV 17.2 % (11.5-14.5); RED CELL DISTRIBUTION WIDTH SD 50.2 fL (36.4-46.3); WHITE BLOOD COUNT 9.17 K/uL (4.8-10.8)
[2017-08-06 20:38] LABS: MEAN CORPUSCULAR HGB CONC 32.4 g/dl (32-36)
[2017-08-06 20:41] VITALS: BMI 45.9
[2017-08-06] MEDS ORDERED: FENTANYL CITRATE INJ 50 MCG/1 ML 2 ML VIAL ONE (20:44)
[2017-08-06] MEDS ORDERED: EpHEDrine SULFATE INJ 50 MG/ML AMP ONE (20:44)
[2017-08-06] MEDS ORDERED: BUPIVACAINE 0.25% 30 ML VIAL ONE ×2 (20:44→23:46)
[2017-08-06] MEDS ORDERED: FENTANYL 2MCG/ML ROPIV 1.25MG/ML 100ML BAG EPI ONE (20:45)
[2017-08-06] MEDS ORDERED: FERR1TAB23 (20:47)
[2017-08-06] MEDS ORDERED: PRENTAB26 PO (20:47)
[2017-08-06] MEDS ORDERED: ONDA4TAB46 PO (20:47)
[2017-08-06 20:48] VITALS: Ht 167.6 cm; Wt 128.6 kg
[2017-08-06] MEDS ORDERED: OXYTOCIN 30 UNITS/500ML NSS IV ONE (21:43)
[2017-08-06] MEDS ORDERED: LACTATED RINGER'S 1000ML 500 ML IV PRN (22:01)
[2017-08-06] MEDS ORDERED: NALOXONE HCL INJ 1 MG in SODIUM CHLORIDE 0.9% 1000ML 1,000 ML IV PRN (22:01)
[2017-08-06] MEDS ORDERED: DiphenhydrAMINE HCL 50 MG/ML VIAL IV PRN (22:15)
[2017-08-06] MEDS ORDERED: NALBUPHINE HCL INJ 10 MG/ML AMP IV PRN (22:15)
[2017-08-06] MEDS ORDERED: NALOXONE HCL INJ 0.4 MG/1 ML VIAL/CARP IV PRN (22:15)
[2017-08-06] MEDS ORDERED: ONDANSETRON INJ 2 MG/ML 2 ML VIAL IV PRN (22:15)
[2017-08-06] MEDS ORDERED: EpHEDrine SULFATE INJ 50 MG/ML AMP IV PRN (22:15)
[2017-08-06] MEDS: FENTANYL 2MCG/ML ROPIV 1.25MG/ML 100ML BAG EPI PRN ×2 (23:14→23:55)
[2017-08-07] MEDS ORDERED: LIDOCAINE/EPINEPHRINE 2% 1:200,000 20 ML SDV ONE (00:31)
[2017-08-07] MEDS ORDERED: LACTATED RINGER'S 1000ML 1,000 ML IV SCH (00:34)
[2017-08-07] MEDS ORDERED: DIPHTHERIA/TETANUS/PERTUSSIS 0.5 ML SYR/VIAL IM. ONE (00:45)
[2017-08-07] MEDS ORDERED: ACETAMINOPHEN 325 MG TAB PO PRN (00:45)
[2017-08-07] MEDS ORDERED: OXYTOCIN 30 UNITS/500ML NSS IV PRN (00:45)
[2017-08-07] MEDS ORDERED: HYDROCORTISONE ACETATE 25 MG SUPP PR PRN (00:45)
[2017-08-07] MEDS ORDERED: SUPERCREAM 0.870 % 15GM JAR EXT PRN (00:45)
[2017-08-07] MEDS ORDERED: LANOLIN OINT EXT PRN (00:45)
[2017-08-07] MEDS ORDERED: BENZOCAINE 20% AER SPR 82.5 GM CAN EXT PRN (00:45)
[2017-08-07] MEDS ORDERED: OXYCODONE/ACETAMINOPHEN 5-325 TAB PO PRN (00:45)
--- NOTE | 2017-08-07 01:09 | DELIVERY SUMMARY ---
DATE OF OPERATION: 08/07/2017 PREOPERATIVE DIAGNOSES: 1. 3, para 2. 2. Spontaneous onset of labor. 3. Group B strep negative. 4. Basilio intrauterine at 38 weeks. POSTOPERATIVE DIAGNOSES: Same. PROCEDURE: Spontaneous vaginal delivery. SURGEON: Marie Smith MD. ASPHALT DAUBER: None. ESTIMATED BLOOD LOSS: 250. COMPLICATIONS: None. DISPOSITION: Stable to labor and delivery room. DESCRIPTION: Bridget Lee is a 31-year-old 3, para 2 who presented at 38 weeks in active labor. The patient was provided with an epidural for pain management. She was managed with expectant management until she became significantly more painful. Shortly after receiving a bolus on her epidural, she was checked and found to be completely dilated with a bulging bag of water. The bag was ruptured with the milling machine operator gear's finger and then the patient began to feel an urge to push. She was coached through her second stage of labor which was very brief and effective. She did bring the head to almost immediately. She delivered in the occiput anterior position followed by the anterior and posterior shoulders with no difficulty and a vigorous female was placed on the maternal abdomen. At the patient's request, delayed cord clamping was done. Once the cord had began to kade, it was clamped and cut by the father of the baby. The placenta delivered spontaneously and was intact with a 3-vessel cord. It appeared completely normal and the patient desires to bring this home to plant under a tree, therefore it will be not send for examination. Cervix, vagina and perineum were free of any lacerations requiring repair and at the present time, the fundus is firm, lochia is normal and mother and infant are in stable condition having tolerated delivery well. I attest to the content of the Intraoperative Record and any orders documented therein. Any exception s are noted below.
[2017-08-07] MEDS: IBUPROFEN 600 MG TAB PO PRN ×5 (01:20→20:26)
--- NOTE | 2017-08-07 01:22 | Anesthesia Procedure Note ---
Anesthesia Epidural Removal Nt Date & Time Aug 07, 2017 at 01:22 Vital Signs Pain Intensity: 5.0 Notes Mental Status: alert / awake / arousable, participated in evaluation Nausea / Vomiting: adequately controlled Pain: adequately controlled Airway Patency, RR, SpO2: stable & adequate BP & HR: stable & adequate Hydration State: stable & adequate Neuraxial Anesthesia: was administered, sensory block is resolving Anesthetic Complications: no major complications apparent, pt satisfied with anesthetic care Epidural: removed without complications, with tip intact
[2017-08-07 04:15] VITALS: BP 107/66; PULSE 93; TEMP 36.2
--- NOTE | 2017-08-07 06:09 | Discharge Instructions ---
Discharge Instructions Date of Service Aug 07, 2017. Admission Reason for Admission: Normal Labor And Delivery Discharge Discharge Diagnosis / Problem: Vaginal Delivery Discharge Goals Goal(s): Routine recovery after delivery Medications Continue Dispensed Medications: supercream, dermaplast, tucks, lansinoh Activity Recommendations Activity Limitations: per Instructions/Follow-up section . Instructions / Follow-Up Instructions / Follow-Up ACTIVITY RECOMMENDATIONS: * Gradual return to full activity over the next 2-3 weeks. * No lifting - nothing heavier than baby over the next 2-3 weeks. * Do not engage in vigorous exercise, sexual activity or sports until cleared by your physician. * Do not drive or operate any motorized equipment until cleared by your physician. * You may shower/bathe daily. MEDICATIONS: For discomfort or pain, you may use Acetaminophen (Tylenol), Ibuprofen (Advil), or Naproxen (Aleve) following the package directions. For constipation you may use Colace following the package directions. BREAST CARE: If you are not breast feeding: * Wear a supportive bra 24 hours a day for one to two weeks. * Avoid stimulating your breasts and nipples as much as possible during the first few weeks after delivery. * When taking a shower, have the warm water hit your back, not breasts. * When your breasts feel full, apply ice packs. Usually three to four times a day helps ease the discomfort. * Take a mild pain medication (Tylenol / Motrin) when you are uncomfortable. If breast feeding: * Use breast milk to lubricate nipples. Lansinoh cream may be used for sore nipples. You do not need to remove cream prior to breast feeding. If using a different brand of cream, check the label for directions regarding removal of cream prior to nursing. * Wear a supportive bra. * If having problems with breasts or breast feeding, call a method consultant or your health care provider. EPISIOTOMY CARE: After delivery, if you have an episiotomy (stitches), the following steps will ease discomfort and aid healing. * For the first 24 hours after delivery, place ice packs next to your episiotomy to help reduce swelling. * After the first 24 hour-period, sitz baths, either portable or in the tub, are suggested. A shower with a shower arm sprayed over the episiotomy may be comforting. * [place] care should be done after each voiding and bowel movement. Squirt warm water from a plastic bottle over the perineum (region of the body between the anus and urinary opening) and pat dry. * Use Dermoplast to ease discomfort. Shake container. [place] directly over the episiotomy. Place a Tucks on a clean sanitary pad next to your episiotomy. SPECIAL CARE INSTRUCTIONS: When you are discharged from the hospital, it is important for you to follow the instructions listed below: * During the first week at home, you should be able to care for yourself and your baby. In addition, the usual light household activities are encouraged. * Limit your activities to the way you feel. Do not try to clean the house or move furniture. Be sensible. * If you actively engage in sports and have done so up until the time of your delivery, you may resume these activities as soon as you feel able. This may take up to one month or even longer. Use good judgment. * Continue to take your vitamins for at least six weeks after the of your baby. * Your diet need not be limited unless you were on a special diet before your delivery. Breast-feeding mothers need around 2500 calories per day and at least 64-80 ounces of fluid per day (8 to 10 glasses). * You should eat foods from the four major food groups. Crash diets or fad diets are to be avoided. Eating lean meats, fresh fruits and vegetables, low-fat dairy products, high fiber foods and a regular exercise program, will help you get back to your pre- weight without putting your health at risk. * Constipation is sometimes a problem after delivery. Take a mild laxative as needed. If breast feeding, Milk of Magnesia is acceptable to use. You may use a suppository or Fleets enema if no episiotomy. * A daily shower or tub bath is suggested. Be sure to thoroughly and gently dry the perineum. * A bloody vaginal discharge will usually continue until around four weeks post . A small amount of bleeding may continue for as long as six weeks. Vaginal discharge changes from the bright red bleeding after delivery to pink then brownish and finally yellowish-pink before becoming white and disappearing. * Bleeding may increase with activity. Your first period may come in 4-8 weeks. If you are breast feeding, your period may be delayed even longer. * [place] (sex) can begin whenever both you and your partner feel comfortable and do not have any form of genital infection. It is recommended that you wait at least six weeks for internal and external healing to occur. If you have questions, please talk to your health care practitioner. A condom should be used to prevent infection and . * Foreplay, gentle intercourse and lubrication is very important the first several times to prevent pain. A water-based lubricant such as K-Y jelly or Astroglide may be used. * If you have RH negative blood and your baby is RH positive, you will receive RHOGAM by injection prior to discharge. The nurse will give you a card to keep with you that has the date and place that you received RHOGAM after delivery. * During your care, you had a Rubella screen done to check for the presence of rubella antibodies in your blood. If your test was negative, you will receive a Rubella vaccine prior to discharge. This vaccine may cause a fever, soreness at the injection site and flu-like symptoms. If these symptoms persist, notify your health care practitioner. is not advised for one month after a Rubella vaccine. * Verbalizes understanding of car seat law as reviewed with patient nursing. * Car Seat hand-out given and reviewed with patient by nursing. * Shaken baby information reviewed with patient by nursing. Call you doctor if: * Heavy bleeding (saturating several pads an hour) or passing clots the size of your fist. * A fever >101 degrees F (38.3 degrees C) on two occasions four hours apart and /or chills. * Unusual pain in the pelvic or vaginal areas. * "Baby Blues" lasting longer than two weeks. If you have any questions or concerns, call your health care practitioner at . FOLLOW UP VISIT: * Please call the office at to schedule a 6 week examination. It is important you keep this appointment. It is important for you to make arrangements for either yearly or twice yearly check-ups thereafter. Current Hospital Diet Patient's current hospital diet: Regular OB Diet Discharge Diet Recommended Diet: Regular Diet Pending Studies Studies pending at discharge: no Medical Emergencies . Who to Call and When: Medical Emergencies: If at any time you feel your situation is an emergency, please call [phone] immediately. . Non-Emergent Contact Non-Emergency issues call your: Primary Care Provider . . "Provider Documentation" section prepared by David Boogie. . VTE Core Measure Inpt VTE Proph given/why not?: Treatment not indicated
[2017-08-07 08:23] VITALS: BP 101/65; PULSE 94; TEMP 36.4; O2SAT 94
[2017-08-07] MEDS: PRENATAL VITAMIN TAB PO SCH (08:32)
[2017-08-07] MEDS: DOCUSATE SODIUM 100 MG CAP PO SCH ×2 (08:33→20:37)
[2017-08-07 12:07] VITALS: BP 130/86; PULSE 91; O2SAT 99
[2017-08-07 15:10] VITALS: BP 139/93; PULSE 84; TEMP 36.4; O2SAT 96
[2017-08-07 20:10] VITALS: BP 123/82; PULSE 92; TEMP 36.5
[2017-08-08 00:45] VITALS: BP 120/80; PULSE 89; TEMP 36.4
[2017-08-08] MEDS: IBUPROFEN 600 MG TAB PO PRN ×5 (01:07→23:57)
--- NOTE | 2017-08-08 06:42 | Progress Note ---
Subjective Aug 08, 2017. Subjective conversation w/ patient, physical exam, lab review Ambulation: ambulating normally Voiding: no voiding problems Diet Tolerance: Regular Diet Lochia: Moderate Objective Vital Signs Date Time Temp Pulse Resp B/P (MAP) Pulse Ox O2 Delivery O2 Flow Rate FiO2 08/08/17 00:45 36.4 89 18 120/80 (93) Room Air 08/08/17 00:45 Room Air 08/07/17 20:10 36.5 92 18 123/82 (96) Room Air 08/07/17 15:10 96 Room Air 08/07/17 15:10 36.4 84 20 139/93 (108) 96 Room Air 08/07/17 12:07 91 16 130/86 (101) 99 Room Air 08/07/17 10:38 Room Air 08/07/17 08:23 36.4 94 16 101/65 (77) 94 Room Air 08/07/17 07:55 Room Air Physical Exam General Appearance: WELL-APPEARING Abdomen: non tender Fundus: Firm Extremities: no calf tenderness Laboratory Results Last 24 Hours Test 08/08/17 04:44 Assessment and Plan Problem List Medical Problems: (1) Allergic reaction Status: Acute (2) First trimester Status: Acute (3) IUP (intrauterine ), incidental Status: Acute (4) Nausea/vomiting in Status: Acute (5) Status: Acute (6) Right flank pain Status: Acute (7) Right flank pain Status: Acute (8) Subchorionic hematoma Status: Acute (9) UTI (urinary tract infection) Status: Acute Post- Day#: 1 Continue Routine Care: Patient doing well no extremity pain continue current care
[2017-08-08 07:23] LABS: HEMATOCRIT 35.8 % (37-47); HEMOGLOBIN 11.5 g/dL (12.0-16.0)
[2017-08-08 07:30] VITALS: BP 113/76; PULSE 81; TEMP 36.4; O2SAT 98
[2017-08-08] MEDS: PRENATAL VITAMIN TAB PO SCH (08:35)
[2017-08-08] MEDS: DOCUSATE SODIUM 100 MG CAP PO SCH ×2 (08:36→19:44)
[2017-08-08 17:00] VITALS: BP 134/84; PULSE 84; TEMP 36.8
[2017-08-08 23:35] VITALS: BP 125/82; TEMP 36.8
--- NOTE | 2017-08-09 06:33 | Progress Note ---
Subjective Aug 09, 2017. Subjective conversation w/ patient (Patient seen and examined at bedside) Ambulation: ambulating normally Voiding: no voiding problems Diet Tolerance: Regular Diet Lochia: Moderate Feeding Type: Breast Feeding Pain: Abdominal pain radiating to back. 12/09, improved with motrin Review of Systems Constitutional: No fever, No chills, No sweats Respiratory: No cough, No shortness of breath Cardiac: No chest pain Abdomen: No pain, No nausea, No vomiting Objective Vital Signs Date Time Temp Pulse Resp B/P (MAP) Pulse Ox O2 Delivery O2 Flow Rate FiO2 08/08/17 23:35 Room Air 08/08/17 23:35 36.8 18 125/82 (96) Room Air 08/08/17 17:00 36.8 84 20 134/84 (101) Room Air 08/08/17 17:00 Room Air 08/08/17 07:30 98 Room Air 08/08/17 07:30 36.4 81 20 113/76 (88) 98 Room Air Physical Exam General Appearance: WELL-APPEARING, WD/WN, NO APPARENT DISTRESS Respiratory/Chest: chest non-tender, lungs clear, normal breath sounds, no respiratory distress, no accessory muscle use Cardiovascular: regular rate, rhythm, no edema, no gallop, no murmur Abdomen: normal bowel sounds, non tender, soft Fundus: Firm, Non-Tender, Relation to Umbilicus (at u) Extremities: normal inspection, no pedal edema, no calf tenderness Laboratory Results Last 24 Hours Test 08/08/17 06:44 Hemoglobin 11.5 g/dL Hematocrit 35.8 % Medications Current Inpatient Medications Medications (Trade) Dose Ordered Sig/Jenn Route Start Time Stop Time Status Last Admin Dose Admin Lactated Ringer's 1,000 ml @ 125 mls/hr Q8H IV 08/07/17 00:34 09/06/17 00:33 Oxytocin (Pitocin IV) 30 units UD PRN IV 08/07/17 00:45 09/06/17 00:44 Benzocaine (Dermoplast Aero Spr) 1 appln PRN PRN EXT 08/07/17 00:45 09/06/17 00:44 Cocaine HCl (Supercream 0.870% Cr) BID PRN EXT 08/07/17 00:45 08/21/17 00:44 08/07/17 05:08 15 GM Hydrocortisone Acetate (Anusol Hc Supp) 25 mg BID PRN TN 08/07/17 00:45 09/06/17 00:44 Lanolin (Lanolin Oint) PRN PRN EXT 08/07/17 00:45 09/06/17 00:44 Prenat Multivit/ [place]/Iron/Folic Ac ( Vitamin Tab) 1 tab DAILY PO 08/07/17 08:00 09/06/17 07:59 08/08/17 08:35 1 TAB Ibuprofen (Motrin Tab) 600 mg Q4H PRN PO 08/07/17 00:45 09/06/17 00:44 08/08/17 23:57 600 MG Acetaminophen (Tylenol Tab) 650 mg Q6H PRN PO 08/07/17 00:45 09/06/17 00:44 Oxycodone/ Acetaminophen (Percocet 5-325mg Tab) 1 tab Q4H PRN PO 08/07/17 00:45 08/21/17 00:44 Docusate Sodium (coLACE CAP) 100 mg BID PO 08/07/17 08:00 09/06/17 07:59 08/08/17 19:44 100 MG Assessment and Plan Problem List Medical Problems: (1) Allergic reaction Status: Acute (2) First trimester Status: Acute (3) IUP (intrauterine ), incidental Status: Acute (4) Nausea/vomiting in Status: Acute (5) Status: Acute (6) Right flank pain Status: Acute (7) Right flank pain Status: Acute (8) Subchorionic hematoma Status: Acute (9) UTI (urinary tract infection) Status: Acute Post- Day#: 2 Continue Routine Care: 31 year old s/p NVD day 2 - pt doing well clinically - B+, GBS -ve and rubella immune - vitals reviewed and wnl - continue to encourage ambulation and - motrin prn for pain, she states she also has a back brace at home she would like to use for additional support - Hgb stable. 12.1 -> 11.5 - review d/c instructions as pt ready for d/c today Resident Physician Supervision Note: I was present with Dr. Boogie during the history and exam. I discussed the case with the resident and agree with the findings and plan as documented in the note. Any exceptions or clarifications are listed here: PPD#2 doing well. Discharge to home today. RTO 6w. Documented By: Bernice Whittaker Resident Tracking Resident Involvement: Resident Care Provided Care Provided: OB Delivery
[2017-08-09] MEDS: IBUPROFEN 600 MG TAB PO PRN (06:37)
[2017-08-09] MEDS ORDERED: MISC-836 (07:42)
[2017-08-09 08:00] VITALS: BP 118/84; PULSE 76; TEMP 36.9; O2SAT 99
[2017-08-09] MEDS: PRENATAL VITAMIN TAB PO SCH (08:11)
[2017-08-09] MEDS: DOCUSATE SODIUM 100 MG CAP PO SCH (08:11)
[2017-08-09 13:00] VITALS: BP_DIAS 84; PULSE 76; TEMP 36.9
== END 2017-08-09 13:12 | disposition home or self-care (01) | DRG 775 ==
LOC: C.OPB 19:54 → C.LD 19:54 → C.OPB 19:57 → C.OBG 08-07 05:04
PROVIDERS: ADMIT Obstetrics & Gynecology; ATTEND Obstetrics & Gynecology
PROC: 10E0XZZ Delivery of Products of Conception, External Approach (ICD-10-PCS; principal; 2017-08-07)
DX: O80 Encounter for full-term uncomplicated delivery (principal); Z37.0 Single live birth; Z3A.38 38 weeks gestation of pregnancy

== ENCOUNTER → 2017-10-04 | Outpatient (CLI) | payer OTHER ==
[~2017-10-04] MED LIST changes: +FERR1TAB23; +MISC-836; +ONDA4TAB46 PO; +PRENTAB26 PO; -PROM25SU28 PR; -RANI150C4 PO
== END | disposition home or self-care (01) ==
LOC: C.PAPS 14:10
PROVIDERS: ATTEND Obstetrics & Gynecology
DX: Z12.4 Encounter for screening for malignant neoplasm of cervix (principal); Z11.51 Encounter for screening for human papillomavirus (HPV)

== ENCOUNTER 2017-11-06 11:18 | Emergency (ER) | payer OTHER ==
[~2017-11-06] VITALS: Ht 167.6 cm; Wt 121.3 kg
[2017-11-06 11:23] VITALS: TEMP 36.3; Ht 167.6 cm; Wt 121.3 kg
[2017-11-06] MEDS ORDERED: ALBUTEROL HFA 8 GM INHALER INH STA (11:46)
[2017-11-06] MEDS ORDERED: BENZONATATE 100MG CAP PO STA (11:46)
--- NOTE | 2017-11-06 12:05 | EMERGENCY ROOM VISIT NOTE ---
History First contact with patient: 11:29 Chief Complaint: ED VAG BLEEDING Stated Complaint: COUGH [id number], DIZZY, VAGINAL BLEEDING/CRAMPING History of Present Illness The patient is a 31 year old female who presents to the Emergency Room with complaints of 3 week history of cough, sore throat, left earache. She states she has been coughing to the point of urinating for the past 3 weeks. She describes a constant tickle in her throat which worsens the cough. 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 She states last evening, she experienced a productive cough which caused her to throw up. She reports over the weekend she had some mild vaginal spotting, but suspects this is related to her period. She is currently breast-feeding, and is on a low-dose of control which she began in August. She did last have vaginal bleeding October 24. The bleeding was mild and improved within 2 days and is no longer present. During those same days, the patient did report some mild dysuria, but states that has improved as well. She does report some intermittent dizziness, lightheadedness. She denies any fever, nausea, syncope, back pain, abdominal pain, chest pain, dyspnea. She does have some chest discomfort while coughing, and states her cough seems to be worse with lying flat. She has been taking OTC cold medications for her symptoms without relief. Review of Systems A complete 10 point review of systems was reviewed with the patient with pertinent positives and negatives as per history of present illness. All else were negative. Past Medical/Surgical History Medical Problems: (1) Asthma (2) Chest pain (3) Chest pain (4) Gestation period, 26 weeks (5) Normal labor and delivery (6) (7) dilation (8) Shortness of breath Family History Diabetes mellitus Social History Smoking Status: Never Smoker Alcohol Use: none Marital Status: Housing Status: lives with family Occupation Status: employed Current/Historical Medications Scheduled Methylprednisolone (Medrol Dosepak), 0 PO DAILY Scheduled PRN Benzonatate (Tessalon Perles), 200 MG PO TID PRN for Cough Ondansetron Hcl (Zofran), 4 MG PO for Nausea Physical Exam Vital Signs Date Time Temp Pulse Resp B/P (MAP) Pulse Ox O2 Delivery O2 Flow Rate FiO2 11/06/17 14:46 81 16 127/79 98 11/06/17 13:01 98 Room Air 11/06/17 12:52 89 18 115/68 98 Room Air 11/06/17 11:23 36.3 97 18 125/76 97 Room Air Physical Exam VITALS: Vitals are noted on the nurse's note and reviewed by myself. Vital signs stable. GENERAL: This is a 31-year-old black female, in no acute distress, nondiaphoretic, well-developed well-nourished. The patient is coughing throughout examination. SKIN: The skin was without rashes, erythema, edema, or bruising. There is no tenting of the skin. Capillary reflex less than 2 seconds. HEAD: Normocephalic atraumatic. EARS: External auditory canals clear, tympanic membranes pearly fuentes without erythema or effusion bilaterally. EYES: Pupils equal round and reactive to light and accommodation. Conjunctivae without injection, sclerae without icterus. Extraocular movements intact. NOSE: Patent, turbinates without inflammation or discharge. No sinus tenderness. MOUTH: Mucous membranes moist. Tonsils are not enlarged. Pharynx without erythema or exudate. Uvula midline. Airway patent. Tongue does not deviate. NECK: Supple without nuchal rigidity. No lymphadenopathy. No thyromegaly. Cervical spine is nontender. No JVD. HEART: Regular rate and rhythm without murmurs gallops or rubs. LUNGS: Clear to auscultation bilaterally without wheezes, rales or rhonchi. No dullness to percussion. No retractions or accessory muscle use. ABDOMEN: Positive bowel sounds x 4. Normal tympanic percussion. Soft, nontender, without masses or organomegaly. Delgado sign negative. No guarding or rebound tenderness. MUSCULOSKELETAL: No muscle atrophy, erythema, or edema noted. Full range of motion without joint tenderness in all extremities. Tenderness to palpation of the bilateral anterior chest wall. No other tenderness to palpation. Normal gait. Strength 5/5 throughout. NEURO: Patient was alert and oriented to person place and time. Normal sensation to light and sharp touch. Deep tendon reflexes 2+ throughout. No focal neurological deficits. Medical Decision & Procedures ER Provider Diagnostic Interpretation: CHEST 2 VIEWS ROUTINE HISTORY: cough COMPARISON: Chest 02/08/2016. FINDINGS: The lungs are clear. Cardiac silhouette is normal in size. No pleural effusions. No pneumothorax. IMPRESSION: No acute process. Electronically signed by: Dalton Cruz M.D. 11/06/2017 1:43 PM Dictated Date/Time: 11/06/2017 1:42 PM Laboratory Results Test 11/06/17 13:50 Influenza Type A Antigen Neg for Influ A (NEG) Influenza Type B Antigen Neg for Influ B (NEG) Medications Administered Medications (Trade) Dose Ordered Sig/Jenn Route Start Time Stop Time Status Last Admin Dose Admin Benzonatate (Tessalon Perles Cap) 200 mg NOW STAT PO 11/06/17 11:46 11/06/17 11:49 DC 11/06/17 12:51 200 MG Albuterol (Ventolin Hfa Inhaler) 2 puffs NOW STAT INH 11/06/17 11:46 11/06/17 11:49 DC 11/06/17 12:51 2 PUFFS ED Course Patient was seen and evaluated as above. Labs/cultures obtained and reviewed. The patient was given 200mg benzonatate and 2 puffs of an albuterol inhaler. Chest x-ray performed. This was reviewed by myself and radiologist. The patient was reassessed. She is feeling much better. Influenza testing performed. There was apparently problems with the order initially placed and nursing staff state they did not see the order "cross over. " I verbally requested the test be performed and placed a new order. Influenza testing performed. Test results pending at time of discharge. They were reviewed after discharge. Negative influenza testing. I had advised patient that I would contact her for positive results. Discharge instructions reviewed. The patient was discharged home in good condition. Medical Decision This is a 31-year-old female patient presents to the emergency department today complaining of cough and sore throat as well as left earache and dysuria over the weekend. These symptoms (with the exception of the urinary symptoms) became severe last evening, however have been intermittent and ongoing for approximately 3 weeks. She states her symptoms did improve when she went to [place] and was taking allergy medication. Her workup here in the emergency department does not reveal any pneumonia on chest x-ray. Influenza testing was negative. Urinalysis did not show signs of infection and the patient was not . She was given an albuterol inhaler and Tessalon Perles here in the emergency department and her symptoms significantly improved. I suspect a bronchitis as the cause of the patient's symptoms. She will be discharged home on steroids, Tessalon Perles, and albuterol. I do suspect allergic component, and recommended the patient take antihistamines as well. She verbalized understanding and agreement. She was certainly encouraged to return to the emergency department or follow-up with her PCP for ongoing or worsening symptoms. All questions were answered to the patient and her satisfaction. Etiologies such as viral syndrome, otitis, pharyngitis, pneumonia, urinary tract infection, sepsis, bacteremia, meningitis, as well as others were entertained. The chart was completed utilizing [employer] Speech voice recognition software. Grammatical errors, random word insertions, pronoun errors, and incomplete sentences are an occasional consequence of this system due to software limitations, ambient noise, and hardware issues. Any formal questions or concerns about the content, text, or information contained within the body of this dictation should be directly addressed to the provider for clarification. Medication Reconcilliation Current Medication List: was personally reviewed by me Blood Pressure Screening Patient's blood pressure: Normal blood pressure Impression Primary Impression: Bronchitis Additional Impression: Allergic rhinitis Departure Information Dispostion Home / Self-Care Condition GOOD Prescriptions Methylprednisolone (MEDROL DOSEPAK) 4 Mg Matthew 0 PO DAILY, #1 PKT Prov: Minda Huang PA-C 11/06/17 Benzonatate (Tessalon Perles) 200 Mg Cap 200 MG PO TID Y for Cough, #30 CAP Prov: Minda Huang PA-C 11/06/17 Referrals No Doctor, Assigned (PCP) Patient Instructions Bronchitis Acute, My [facility] Additional Instructions You were seen and evaluated in the emergency department today for an upper respiratory infection. I do feel that based on your symptoms, and the duration of illness, this is likely viral/allergic in nature. As discussed, antibiotics will not treat viral illness. Your influenza test is still pending, however I will call you if it is positive. You have been prescribed a Medrol Dosepak. This is a steroid which will help decrease your inflammation, redness, and itch. Take the medicine as prescribed. Take the ENTIRE 6 day course of the steroids. You have been provided with an albuterol inhaler to use for wheezing or difficulty breathing. Use this inhaler 1-2 puffs every 4-6 hours as needed. If you find that your symptoms are not improving with the use of the inhaler, or if you find that you need to use the inhaler longer than 1 week, return to the ED or follow-up with your PCP. You have been given benzonatate (Tessalon Pearles) to be used for coughing. These should be taken 1 capsule up to 3 times per day as needed for coughing. Do not take this medication more than prescribed. You may use this medication in addition to OTC cough medications. For your sore throat, you may use a 1:1 mixture of liquid Benadryl and liquid Maalox. Gargle and spit this mixture. It will help to soothe the throat and provide some relief. Drink warm tea with honey and lemon, as this will also help to soothe the throat. Gargle with salt water frequently. As discussed, you should take OTC Mucinex and/or Sudafed for your symptoms. Please do not exceed the recommended daily dosages. I do recommend adding an antihistamine such as Zyrtec 10 mg daily at bedtime to help with any allergic related symptoms. Ibuprofen(Motrin, Advil) may be used for fever or pain. Use 600mg every six hours as needed. Take with food. Avoid using more than 2400mg in a 24 hour period. Do not use 2400mg per day for more than three consecutive days without physician direction. Prolonged inappropriate use can lead to stomach upset or ulcers. You may take Naproxen 1-[address] tablets twice daily in place of ibuprofen. This medication will help with the swelling in your sinuses. (AND/OR) Acetaminophen(Tylenol) may be used for fever or pain. Use 1000mg every six hours as needed. Avoid using more than 3000mg in a 24 hour period. For congestion, you may use Flonase OTC. You may want to consider zinc, echinacea, and vitamin C to help boost your immunity. Please get plenty of rest and drink plenty of fluids. Please return or follow-up with your PCP in 1 week if you are not experiencing any improvement in your symptoms. Return to the emergency department for coughing up blood, difficulty breathing, chest pain, worsening symptoms, or for other concerns. Problem Qualifiers Additional Impression: Allergic rhinitis Allergic rhinitis trigger: unspecified Allergic rhinitis seasonality: seasonal Qualified Codes: J30.2 - Other seasonal allergic rhinitis
--- NOTE | 2017-11-06 13:44 | DIAGNOSTIC IMAGING REPORT ---
CHEST 2 VIEWS ROUTINE HISTORY: cough COMPARISON: Chest 02/08/2016. FINDINGS: The lungs are clear. Cardiac silhouette is normal in size. No pleural effusions. No pneumothorax. IMPRESSION: No acute process. Electronically signed by: Dalton Cruz M.D. 11/06/2017 1:43 PM Dictated Date/Time: 11/06/2017 1:42 PM
[2017-11-06 14:31] LABS: INFLUENZA B ANTIGEN Neg for Influ B (NEG)
[2017-11-06] MEDS ORDERED: BENZ1CAP90 PO (14:32)
[2017-11-06] MEDS ORDERED: METH4PAK PO (14:32)
[2017-11-06 14:46] VITALS: BP 127/79; PULSE 81; O2SAT 98
== END 2017-11-06 14:51 | disposition home or self-care (01) ==
LOC: C.EDB 11:19
DX: J40 Bronchitis, not specified as acute or chronic (principal); J30.2 Other seasonal allergic rhinitis

== ENCOUNTER 2018-10-13 05:18 | Inpatient (IN) ==
[2018-10-13] MEDS ORDERED: OXYTOCIN 30 UNITS/500 ML BAG IV PRN ×2 (05:43→08:27)
[2018-10-13] MEDS ORDERED: LACTATED RINGER'S 1,000 ML IV PRN ×2 (05:43→07:02)
[2018-10-13] MEDS ORDERED: fentaNYL citrate 100 MCG/2 ML VIAL ONE (06:07)
[2018-10-13] MEDS ORDERED: BUPIVACAINE 0.25% 30 ML VIAL ONE (06:07)
[2018-10-13] MEDS ORDERED: ePHEDrine sulfate 50 MG/ML AMP ONE (06:07)
[2018-10-13] MEDS ORDERED: fentaNYL 2MCG/ML ROPIV 1.25MG/ML 100 ML BAG EPI ONE (06:08)
[2018-10-13] MEDS: LACTATED RINGER'S 1,000 ML IV SCH ×2 (06:10→07:20)
[2018-10-13 06:13] LABS: Hematocrit (blood only) 36.4 % (37-47); Hemoglobin 12.3 g/dL (12.0-16.0); Mean Corpuscular Volume 80.4 fL (80-100); Platelet Count 358 K/uL (130-400); RDW Coefficient of Variation 14.6 % (11.5-14.5); RDW Standard Deviation 42.7 fL (36.4-46.3); Red Blood Count 4.53 M/uL (4.2-5.4); White Blood Count 7.07 K/uL (4.8-10.8)
[2018-10-13 06:18] LABS: Mean Corpuscular Hgb Conc 33.8 g/dL (32-36)
--- NOTE | 2018-10-13 07:01 | Anesthesiology Consultation ---
Date of Service October 13, 2018 Assessment & Plan Chart Review Chart Review: Acceptable Risk for Labor Epidural Consults Requested none History Height/Weight Height: 5 ft 6 in Allergies Allergy/AdvReac Type Severity Reaction Status Date / Time Penicillins Allergy Severe HIVES Verified 09/27/18 14:56 Medications Home Medications Medication Instructions Recorded Confirmed Last Taken PNV cmb#95-ferrous fumarate-FA 1 tab PO DAILY 09/27/18 09/27/18 09/26/18 [] Active Medications Generic Name Dose Route Start Last Admin Trade Name Freq PRN Reason Stop Dose Admin Lactated Ringer's 1,000 mls @ 125 mls/hr 10/13/18 05:45 10/13/18 06:49 Lr IV 10/15/18 05:44 125 mls/hr .Q8H JYOTI Infusion Past Medical History Medical History (spontaneous vaginal delivery) SVDX 3 08/2011 Past Family History Family History Grandmother (Paternal) Diabetes Stroke Mother Cancer Past Surgical History Surgical History No history of previous surgery Social History Smoking Status: Never smoker Hx Alcohol Use: No Hx Substance Use: No substance use type: does not use Physical Exam Vital Signs Last Vital Signs Pulse 104 H 10/13/18 06:58 Resp 18 10/13/18 05:50 BP 105/57 L 10/13/18 06:58 Pulse Ox 100 10/13/18 06:58 Testing Laboratory Results 10/13/18 06:03
[2018-10-13] MEDS ORDERED: ePHEDrine sulfate 50 MG/ML AMP IV PRN (07:02)
[2018-10-13] MEDS ORDERED: NALOXONE HCL 1 MG in SODIUM CHLORIDE 0.9% 1000ML 1,000 ML IV PRN (07:02)
[2018-10-13] MEDS ORDERED: NALBUPHINE HCL INJ 10 MG/ML AMP IV PRN (07:02)
[2018-10-13] MEDS ORDERED: NALOXONE HCL 0.4 MG/1 ML VIAL/CARP IV PRN (07:02)
[2018-10-13] MEDS ORDERED: DiphenhydrAMINE HCL 50 MG/ML VIAL IV PRN (07:02)
[2018-10-13] MEDS ORDERED: fentaNYL 2MCG/ML ROPIV 1.25MG/ML 100 ML BAG EPI PRN (07:02)
[2018-10-13 07:43] LABS: Hepatitis B Surface Antibody Immune
[2018-10-13 07:53] LABS: Rubella IgG Antibody Immune (Immune)
[2018-10-13 08:22] LABS: Hepatitis C IgG 13Yrs+Old_Rflx Neg (Neg)
[2018-10-13] MEDS ORDERED: ACETAMINOPHEN W/CODEINE #3 1 TAB PO PRN (08:27)
[2018-10-13] MEDS ORDERED: OXYCODONE/ACETAMINOPHEN 5mg/325mg TAB PO PRN (08:27)
[2018-10-13] MEDS ORDERED: ACETAMINOPHEN 325 MG TAB PO PRN (08:27)
[2018-10-13] MEDS ORDERED: DIPHTHERIA/TETANUS/PERTUSSIS 0.5 ML SYR/VIAL IM ONE (08:27)
[2018-10-13] MEDS ORDERED: HYDROCORTISONE ACETATE 25 MG SUPP PR PRN (08:27)
[2018-10-13] MEDS ORDERED: SUPERCREAM 0.870% 15 GM JAR EXT PRN (08:27)
[2018-10-13] MEDS ORDERED: BISACODYL 10 MG SUPP PR PRN (08:27)
[2018-10-13] MEDS ORDERED: BENZOCAINE 20% AER SPR 82.5 GM CAN EXT PRN (08:27)
--- NOTE | 2018-10-13 09:58 | Anesthesia Procedure Note ---
Date of Service October 13, 2018 Anesthesia Post Epidural Note Vital Signs Vital Signs: Temp Pulse Resp BP Pulse Ox 36.6 C 86 18 109/55 L 100 10/13/18 07:03 10/13/18 09:43 10/13/18 08:45 10/13/18 09:43 10/13/18 08:18 Pain Intensity Lower Abdomen: Pain Intensity: 0 Notes Mental Status: alert / awake / arousable Patient Amnestic to Procedure: Yes Nausea / Vomiting: adequately controlled Pain: adequately controlled Airway Patency, RR, SpO2: stable & adequate BP & HR: stable & adequate Hydration State: stable & adequate Neuraxial Anesthesia: was administered and sensory block resolved Anesthetic Complications: no major complications apparent and Pt Satisfied with anesthetic care Epidural: Removed without complications and With tip intact
[2018-10-13 10:11] LABS: Hematocrit (blood only) 35.7 % (37-47); Hemoglobin 11.9 g/dL (12.0-16.0); Mean Corpuscular Volume 80.4 fL (80-100); Mean Platelet Volume 9.1 fL (7.4-10.4); Platelet Count 280 K/uL (130-400); RDW Coefficient of Variation 14.6 % (11.5-14.5); RDW Standard Deviation 42.8 fL (36.4-46.3); Red Blood Count 4.44 M/uL (4.2-5.4); White Blood Count 12.74 K/uL (4.8-10.8)
[2018-10-13] MEDS: IBUPROFEN 600 MG TAB PO PRN ×3 (10:16→20:28)
[2018-10-13 10:17] LABS: Mean Corpuscular Hgb Conc 33.3 g/dL (32-36)
[2018-10-13] MEDS: PRENATAL VITAMIN 1 TAB PO SCH (10:20)
[2018-10-13] MEDS: DOCUSATE SODIUM 100 MG CAP PO SCH ×2 (10:20→20:30)
--- NOTE | 2018-10-13 11:04 | Delivery Summary ---
DATE OF OPERATION: 10/13/2018 DELIVERY NOTE: The patient has been followed in our office for care and delivery. She is a 4, para 4. Blood type is B positive, group B strep negative. She is late arrival, her first visit was in the 20s weeks. She had a history of having premature labors. She was immediately placed on [place] 1 injection a week until she was 36 weeks and she was given earlier in her a half course of [place] and then Sunday prior to delivery, she had a full course of [place] 12 mg by 24 hours anticipating early delivery. She was admitted in active labor. On admission, she was like 7-8 cm, membranes were clear. We were able to give her fluids and get an epidural in, she got good pain relief. She labored down spontaneously. The head came down. She delivered a live infant via direct occiput anterior position over an intact perineum. After delivery of the head, there was an extremely tight nuchal cord. This had to be clamped into spaces and cut and then the body of the infant came out without difficulty. Cord blood was taken. With IV Pitocin running, the placenta was removed intact. Inspection of the perineum revealed everything to be intact. Estimated blood loss was only 100 mL and Apgars were adequate. I will defer them to the nurses. I attest to the content of the Intraoperative Record and any orders documented therein. Any exception s are noted below.
[2018-10-14] MEDS: IBUPROFEN 600 MG TAB PO PRN ×2 (02:03→12:02)
[2018-10-14 06:13] LABS: Hematocrit (blood only) 33.4 % (37-47); Hemoglobin 10.9 g/dL (12.0-16.0); Mean Corpuscular Hgb Conc 32.6 g/dL (32-36); Mean Corpuscular Volume 81.1 fL (80-100); Mean Platelet Volume 9.2 fL (7.4-10.4); Platelet Count 263 K/uL (130-400); RDW Coefficient of Variation 14.7 % (11.5-14.5); RDW Standard Deviation 43.2 fL (36.4-46.3); Red Blood Count 4.12 M/uL (4.2-5.4); White Blood Count 9.56 K/uL (4.8-10.8)
[2018-10-14] MEDS: PRENATAL VITAMIN 1 TAB PO SCH (07:28)
[2018-10-14] MEDS: DOCUSATE SODIUM 100 MG CAP PO SCH ×2 (07:28→20:41)
--- NOTE | 2018-10-14 09:16 | Obstetrical Progress Note ---
Date of Service October 14, 2018 Physical Exam Vital Signs (Past 24 Hours): Last Vital Signs Temp 36.6 C 10/14/18 07:56 Pulse 87 10/14/18 07:56 Resp 16 10/14/18 07:56 BP 135/92 10/14/18 07:56 Pulse Ox 98 10/14/18 07:56 Physical Exam: abdomen soft and non tender vaginal bleeding scant to moderate no calf tenderness ambulating well
[2018-10-14] MEDS ORDERED: BISACODYL 5 MG TABEC PO SCH (20:00)
[2018-10-15 06:43] LABS: Hematocrit (blood only) 35.2 % (37-47); Hemoglobin 11.6 g/dL (12.0-16.0)
[2018-10-15] MEDS: IBUPROFEN 600 MG TAB PO PRN (08:29)
[2018-10-15] MEDS: PRENATAL VITAMIN 1 TAB PO SCH (09:04)
[2018-10-15] MEDS: DOCUSATE SODIUM 100 MG CAP PO SCH (09:04)
--- NOTE | 2018-10-15 09:05 | Obstetrical Progress Note ---
Date of Service October 15, 2018 Physical Exam Vital Signs (Past 24 Hours): Last Vital Signs Temp 36.7 C 10/15/18 04:30 Pulse 74 10/15/18 04:30 Resp 18 10/15/18 04:30 BP 115/76 10/15/18 04:30 Pulse Ox 98 10/14/18 07:56 Physical Exam: abdomen soft and non tender vaginal bleeding scant to moderate no calf tenderness ambulating well
== END 2018-10-15 14:55 | disposition home or self-care (01) | DRG 807 ==
LOC: OPB 05:18 → 4S1 05:20 → 4S2 14:06